=== PATIENT | female | born 1990 | race Caucasian/White ===

== ENCOUNTER 2017-01-24 07:45 | Emergency (ER) | payer MEDICAID ==
[2017-01-24] MEDS ORDERED: Sodium Chloride 0.9% 1000 ML 1,000 ML IV STA (07:53)
[2017-01-24] MEDS ORDERED: Reglan 10 MG/2 ML IV ONE (07:53)
[2017-01-24] MEDS ORDERED: BENADRYL 50 MG/ML IV ONE (07:53)
--- NOTE | 2017-01-24 07:56 | ERPHSYRPT ---
- History of Present Illness Time Seen by Provider: 01/24/17 07:47 Source: patient Physician History: CC: headache Hx: 26 y/o patient of PRERNA Shahid with hx of migraine headaches. She has had typical migraine headache gradually worsened since noon yesterday. Photophobia and nausea. No fever. Prior hysterectomy. She took two headache pills without relief. Pain is severe. Timing/Duration: yesterday Severity of Pain-Max: severe Severity of Pain-Current: severe Recent Head Trauma: frequent headaches, chronic headaches Allergies/Adverse Reactions: No Known Drug Allergies Allergy (Unverified 01/24/17 07:56) Home Medications: Amphet Asp/Amphet/D-Amphet [Adderall 30 mg Tablet] 30 mg PO BID 01/24/17 [ History] Propranolol HCl [Inderal Xl] 0 mg PO DAILY 01/24/17 [History] Hx Tetanus, Diphtheria Vaccination/Date Given: Yes Hx Influenza Vaccination/Date Given: No Hx Pneumococcal Vaccination/Date Given: No - Review of Systems Constitutional: No Fever, No Chills Eyes: Photophobia Ears, Nose, & Throat: No Symptoms Respiratory: No Cough Cardiac: No Chest Pain Abdominal/Gastrointestinal: Nausea, No Abdominal Pain, No Vomiting Genitourinary Symptoms: No Dysuria Skin: No Rash Neurological: Dizziness, Headache, No Focal Weakness, No Parasthesia All Other Systems: Reviewed and Negative - Past Medical History Pertinent Past Medical History: Yes Neurological History: Migraines Endocrine Medical History: Hypoglycemia Psycho-Social History: Depression Female Reproductive Disorders: Abnormal Uterine Bleeding, Endometriosis, Other Other Medical History: CERVICAL PRECANCER, OVARIAN CYSTS - Past Surgical History Past Surgical History: Yes Gastrointestinal: Cholecystectomy Female Surgical History: Section, Tubal Ligation Other Surgical History: D/C - Social History Smoking Status: Current every day smoker Exposure to second hand smoke: No Drug Use: none Patient Lives Alone: No - Female History Hx Now: No - Nursing Vital Signs Nursing Vital Signs: Initial Vital Signs Temperature 97.9 F Temperature Source Oral Pulse Rate 72 Respiratory Rate 18 Blood Pressure [Right Arm] 119/81 Pain Intensity 8 - Physical Exam General Appearance: alert Eye Exam: PERRL/EOMI Ears, Nose, Throat Exam: normal ENT inspection, moist mucous membranes Neck Exam: normal inspection, non-tender, supple, No meningismus Respiratory Exam: normal breath sounds, lungs clear Cardiovascular Exam: regular rate/rhythm Gastrointestinal/Abdominal Exam: soft, No tenderness, No distention Extremity Exam: normal inspection, normal range of motion Mental Status Exam: alert, oriented x 3, cooperative bobtailer Exam: normal hearing, normal speech, PERRL Coordination/Gait Exam: normal gait Motor/Sensory Exam: no motor deficit, no sensory deficit, no pronator drift Skin Exam: warm, dry, No rash - Course Nursing assessment & vital signs reviewed: Yes Ordered Tests: Active Orders 24 hr Category Date Time Status IV Insertion STAT Care 01/24/17 07:53 Active Medication Summary Generic Name Dose Route Start Last Admin Trade Name Freq PRN Reason Stop Dose Admin Sodium Chloride 1,000 mls @ 999 mls/hr 01/24/17 07:53 01/24/17 08:00 Sodium Chloride 0.9% 1000 Ml IV 01/24/17 08:53 999 mls/hr .Q1H1M STA Administration Discontinued Medications Generic Name Dose Route Start Last Admin Trade Name Freq PRN Reason Stop Dose Admin Diphenhydramine HCl 25 mg 01/24/17 07:53 01/24/17 08:01 Benadryl 50 Mg/Ml IV 01/24/17 07:54 25 mg STAT ONE Administration Diphenhydramine HCl Confirm 01/24/17 07:59 Benadryl 50 Mg/Ml Administered 01/24/17 08:00 Dose 50 mg .ROUTE .STK-MED ONE Sodium Chloride Confirm 01/24/17 07:59 Sodium Chloride 0.9% 1000 Ml Administered 01/24/17 08:00 Dose 1,000 mls @ ud .ROUTE .STK-MED ONE Metoclopramide HCl 10 mg 01/24/17 07:53 01/24/17 08:01 Reglan 10 Mg/2 Ml IV 01/24/17 07:54 10 mg STAT ONE Administration Metoclopramide HCl Confirm 01/24/17 07:59 Reglan 10 Mg/2 Ml Administered 01/24/17 08:00 Dose 10 mg .ROUTE .STK-MED ONE - Progress Progress Note: 01/24/17 08:48 She was medicated with IVF, benadryl, reglan, and toradol. Improved headache. Will release with instructions. Counseled pt/family regarding: diagnosis, need for follow-up - Departure Time of Disposition: 08:49 Departure Disposition: Home Clinical Impression: Migraine headache Qualifiers: Migraine type: without aura Status migrainosus presence: with status migrainosus Intractability: intractable Qualified Code(s): G43.011 - Migraine without aura, intractable, with status migrainosus Condition: Stable Critical Care Time: No Referrals: CINTIA SHAHID [NON-STAFF PHY W/O PRIVILEGES] - Instructions: Headache Additional Instructions: HEADACHE 1. After discharge from the emergency department, you should rest at home in a cool, dark, quiet place for 12-24 hours. 2. If any of the following signs or symptoms are noticed, you should be re- evaluated right away: A. Visual changes B. Stiff Neck C. Change in quality or location of pain D. Fever E. Recurrent vomiting 3. If pain medications were prescribed or given, they may cause drowsiness. No driving today. Follow up with PRERNA Shahid this week.
[2017-01-24] MEDS ORDERED: Reglan 10 MG/2 ML ONE (07:59)
[2017-01-24] MEDS ORDERED: BENADRYL 50 MG/ML ONE (07:59)
[2017-01-24] MEDS ORDERED: Sodium Chloride 0.9% 1000 ML 1,000 ML ONE (07:59)
[2017-01-24 08:51] VITALS: BP 110/75; PULSE 75; O2SAT 100
== END 2017-01-24 09:07 | disposition home or self-care (01) ==
LOC: ED 07:45
DX: G43.101 Migraine with aura, not intractable, with status migrainosus (principal)
CPT/HCPCS: 36000; 96360; 96374; 96375; 99284; J1200

== ENCOUNTER 2017-03-28 23:09 | Emergency (ER) | payer MEDICAID, OTHER ==
[2017-03-28] MEDS ORDERED: MOTRIN 600 MG PO ONE (23:18)
[2017-03-28] MEDS ORDERED: MOTRIN 600 MG ONE (23:23)
--- NOTE | 2017-03-28 23:23 | ERPHSYRPT ---
- History of Present Illness Time Seen by Provider: 03/28/17 23:18 Source: patient Physician History: CC: right ankle pain HX: 26 y/o patient with prior hsyterectomy. She has three injuries to right ankle today, twisting, smashed in door, and hurt while walking. No other injuries. Pain moderate. Worse with walking. Lower Extremities Pain: ankle: right Allergies/Adverse Reactions: No Known Drug Allergies Allergy (Unverified 03/28/17 23:35) Home Medications: Amphet Asp/Amphet/D-Amphet [Adderall 30 mg Tablet] 30 mg PO BID 01/24/17 [ History] Propranolol HCl [Inderal Xl] 0 mg PO DAILY 01/24/17 [History] Hx Tetanus, Diphtheria Vaccination/Date Given: Yes Hx Influenza Vaccination/Date Given: No Hx Pneumococcal Vaccination/Date Given: No - Review of Systems Constitutional: No Fever, No Chills Musculoskeletal: Joint Pain (right ankle), No Back Pain, No Neck Pain - Past Medical History Pertinent Past Medical History: Yes Neurological History: Migraines Endocrine Medical History: Hypoglycemia Psycho-Social History: Depression Female Reproductive Disorders: Abnormal Uterine Bleeding, Endometriosis, Other Other Medical History: CERVICAL PRECANCER, OVARIAN CYSTS - Past Surgical History Past Surgical History: Yes Gastrointestinal: Cholecystectomy Female Surgical History: Section, Tubal Ligation Other Surgical History: D/C - Social History Smoking Status: Current every day smoker How long have you smoked: 15 Exposure to second hand smoke: No Drug Use: none Patient Lives Alone: No - Female History Hx Now: No - Nursing Vital Signs Nursing Vital Signs: Initial Vital Signs Temperature 97.8 F 03/28/17 23:34 Pulse Rate 88 03/28/17 23:34 Respiratory Rate 16 03/28/17 23:34 Blood Pressure 123/86 03/28/17 23:34 O2 Sat by Pulse Oximetry 99 03/28/17 23:34 Pain Scale Pain Intensity 4 - Physical Exam General Appearance: alert Eyes, Ears, Nose, Throat Exam: moist mucous membranes Neck Exam: non-tender, supple Cardiovascular/Respiratory Exam: regular rate/rhythm Neuro/Tendon Exam: normal sensation, normal motor functions Mental Status Exam: alert, oriented x 3, cooperative Skin Exam: warm, dry Comments: right ankle tender. no erythema, no swelling, no warmth. No foot or knee tenderness. Pulse intact. - Course Nursing assessment & vital signs reviewed: Yes - Radiology Exams ankle X-ray Interpretation: Reviewed by me, No Fracture (spurring present) Ordered Tests: Active Orders 24 hr Category Date Time Status Vitaly Bandage [facility] STAT Care 03/28/17 23:18 Active Cold Application STAT Care 03/28/17 23:18 Active Splint STAT Care 03/28/17 23:18 Active ANKLE (3 VIEWS) Stat Exams 03/28/17 23:19 Taken Medication Summary Discontinued Medications Generic Name Dose Route Start Last Admin Trade Name Yayo PRN Reason Stop Dose Admin Ibuprofen 600 mg 03/28/17 23:18 03/28/17 23:24 Motrin 600 Mg PO 03/28/17 23:19 600 mg STAT ONE Administration Ibuprofen Confirm 03/28/17 23:23 Motrin 600 Mg Administered 03/28/17 23:24 Dose 600 mg .ROUTE .STK-MED ONE - Progress Progress Note: 03/28/17 23:39 Prelim xray neg pending radiologist review. Advised vitaly, air cast, ice, rest, elevate, motrin. Instr given. Counseled pt/family regarding: diagnosis, need for follow-up, rad results - Departure Time of Disposition: 23:40 Departure Disposition: Home Clinical Impression: Right ankle sprain Qualifiers: Encounter type: initial encounter Involved ligament of ankle: unspecified ligament Qualified Code(s): S93.401A - Sprain of unspecified ligament of right ankle, initial encounter Condition: Stable Critical Care Time: No Referrals: JEFFERY TREVIZO [Primary Care Provider] - Instructions: Ankle Sprain Additional Instructions: Vitaly wrap, air cast, ice , rest, elevate. Rx ibuprofen=motrin. SPRAINS/STRAINS/CONTUSIONS 1. Rest the affected area as much as possible for the next few days. 2. Apply ice to the affected area for 20-30 minutes at a time, several times a day. 3. If you receive an elastic wrap, wear it only while awake for comfort and support. Re-wrap the elastic wrap if it feels too tight or too loose. 4. If swelling is present, elevate the affected part above the level of the heart for at least 2 to 3 days. 5. Use splints, slings, or crutches as instructed. 6. Watch for severe swelling, coldness, numbness, and discoloration of the fingers and toes. See your family physician or return to the emergency department if any of these are noted. Prescriptions: Ibuprofen 600 mg PO Q6H PRN PRN #20 tablet PRN Reason: Pain
[2017-03-28 23:35] VITALS: BP 123/86; PULSE 88; O2SAT 99
--- NOTE | 2017-03-29 09:04 | XRAY ---
Indication: Pain following twisting injury. Comparison: July 05, 2006. 3 views of the right ankle again demonstrates normal bones, articulation, and soft tissues.
== END 2017-03-29 00:15 | disposition home or self-care (01) ==
LOC: ED 23:09
DX: S93.401A Sprain of unspecified ligament of right ankle, initial encounter (principal); X50.0XXA Overexertion from strenuous movement or load, initial encounter; W22.8XXA Striking against or struck by other objects, initial encounter
CPT/HCPCS: 73610; 99283; A9270-GY

== ENCOUNTER 2017-04-06 07:23 | Emergency (ER) | payer OTHER ==
[2017-04-06] MEDS ORDERED: BENADRYL 50 MG/ML IV ONE (07:35)
[2017-04-06] MEDS ORDERED: Sodium Chloride 0.9% 1000 ML 1,000 ML IV STA (07:35)
[2017-04-06] MEDS ORDERED: Reglan 10 MG/2 ML IV ONE (07:35)
[2017-04-06] MEDS ORDERED: Reglan 10 MG/2 ML ONE (07:41)
[2017-04-06] MEDS ORDERED: BENADRYL 50 MG/ML ONE (07:41)
[2017-04-06] MEDS ORDERED: Sodium Chloride 0.9% 1000 ML 1,000 ML ONE (07:41)
--- NOTE | 2017-04-06 07:41 | ERPHSYRPT ---
- History of Present Illness Time Seen by Provider: 04/06/17 07:33 Source: patient Exam Limitations: no limitations Patient Subjective Stated Complaint: co migraine since last night, nausea, unrelieved by sumatriptan Triage Nursing Assessment: pt walked in , resp easy, skin w/d,alert, wearing sunglasses and holding head, Physician History: 26-year-old white female with history of migraines arrives with complaint of frontal headache nausea and photophobia symptoms since last night no fevers no focal sensory deficits. Past medical history includes migraines, hypoglycemia, abnormal uterine bleeding , endometriosis, cervical pre-cancer Past surgical history includes cholecystectomy, tubal ligation, D&C Timing/Duration: yesterday Quality: aching Head Pain Location: frontal Severity of Pain-Max: moderate Severity of Pain-Current: moderate Recent Head Trauma: occasional headaches Associated Symptoms: nausea/vomiting, other (photophobia), No confusion, No dizziness, No fatigue, No facial pain, No fever/chills, No flushing, No light- headedness, No loss of consciousness, No nasal congestion, No nasal drainage, No neck pain, No numbness in legs/feet, No rash, No sweating, No scotoma, No seizures, No sinus infection, No sensitive to light, No speech problems, No stiff neck, No trouble walking, No vision changes, No visual disturbance, No weakness Previous symptoms: same symptoms as today (history of migraines with same symptoms as today) Allergies/Adverse Reactions: No Known Drug Allergies Allergy (Verified 04/06/17 07:30) Home Medications: Amphet Asp/Amphet/D-Amphet [Adderall 30 mg Tablet] 30 mg PO BID 01/24/17 [ History] Propranolol HCl [Inderal Xl] 0 mg PO DAILY 01/24/17 [History] Hx Tetanus, Diphtheria Vaccination/Date Given: Yes Hx Influenza Vaccination/Date Given: No Hx Pneumococcal Vaccination/Date Given: No Immunizations Up to Date: Yes - Review of Systems Constitutional: No Fever, No Chills Eyes: Photophobia, No Discharge, No Eye Pain, No Eye Redness, No Itchy, No Tearing, No Vision Changes, No Double Vision, No Foreign Body Sensation Ears, Nose, & Throat: No Symptoms Respiratory: No Cough, No Dyspnea Cardiac: No Chest Pain, No Edema, No Syncope Abdominal/Gastrointestinal: Nausea, No Abdominal Pain, No Vomiting, No Diarrhea , No Constipation, No Hematemesis, No Hematochezia, No Melena, No Dysphagia, No Appetite Changes Genitourinary Symptoms: No Dysuria Musculoskeletal: No Back Pain, No Neck Pain Skin: No Rash Neurological: Headache, No Dizziness, No Focal Weakness, No Gait Changes, No Irritability, No Lethargy, No Paralysis, No Parasthesia, No Seizure, No Sensory Changes, No Speech Changes, No Tics, No Tremors Psychological: No Symptoms Endocrine: No Symptoms All Other Systems: Reviewed and Negative - Past Medical History Pertinent Past Medical History: Yes Neurological History: Migraines Endocrine Medical History: Hypoglycemia Psycho-Social History: Anxiety, Depression Female Reproductive Disorders: Abnormal Uterine Bleeding, Endometriosis, Other Other Medical History: CERVICAL PRECANCER, OVARIAN CYSTS - Past Surgical History Past Surgical History: Yes Gastrointestinal: Cholecystectomy Female Surgical History: Section, Tubal Ligation Other Surgical History: D/C - Social History Smoking Status: Current every day smoker How long have you smoked: 15 Exposure to second hand smoke: Yes Drug Use: none Patient Lives Alone: No - Female History Hx Last Menstrual Period: hyster Hx Now: No - Nursing Vital Signs Nursing Vital Signs: Initial Vital Signs Temperature 98.5 F 04/06/17 07:25 Pulse Rate 67 04/06/17 07:25 Respiratory Rate 18 04/06/17 07:25 Blood Pressure 123/86 04/06/17 07:25 O2 Sat by Pulse Oximetry 100 04/06/17 07:25 Pain Scale Pain Intensity 5 - Physical Exam General Appearance: moderate distress, alert, No anxiety, No lethargy, No cachetic, No obese, No thin Eye Exam: PERRL/EOMI, other (fundi are unremarkable) Ears, Nose, Throat Exam: normal ENT inspection, moist mucous membranes Neck Exam: normal inspection, supple, full range of motion, No meningismus Respiratory Exam: normal breath sounds, lungs clear Cardiovascular Exam: regular rate/rhythm, normal heart sounds Gastrointestinal/Abdominal Exam: soft, No tenderness, No distention Back Exam: normal inspection, normal range of motion Extremity Exam: normal inspection, normal range of motion Mental Status Exam: alert, oriented x 3, cooperative, No agitated, No uncooperative, No depressed affect, No disoriented to person, No disoriented to place, No disoriented to time, No intoxicated appearance, No lethargy, No unresponsive obgyn hospitalist physician Exam: normal speech, PERRL, No facial droop, No facial paresthesias, No facial weakness, No gaze palsy, No hearing deficit (R), No hearing deficit (L) Coordination/Gait Exam: normal finger to nose, normal gait, normal cerebellar function, No ABN nose to finger (R), No ABN nose to finger (L) Motor/Sensory Exam: no motor deficit, no sensory deficit, No weak motor strength RUE, No weak motor strength LUE, No weak motor strength RLE, No weak motor strength LLE Skin Exam: normal color, warm, dry, No rash SpO2 Interpretation: normal (100%) SpO2: 100 Oxygen Delivery: Room Air - Course Nursing assessment & vital signs reviewed: Yes Ordered Tests: Active Orders 24 hr Category Date Time Status IV Insertion STAT Care 04/06/17 07:35 Active Medication Summary Discontinued Medications Generic Name Dose Route Start Last Admin Trade Name Freq PRN Reason Stop Dose Admin Diphenhydramine HCl 25 mg 04/06/17 07:35 04/06/17 07:42 Benadryl 50 Mg/Ml IV 04/06/17 07:36 25 mg STAT ONE Administration Diphenhydramine HCl Confirm 04/06/17 07:41 Benadryl 50 Mg/Ml Administered 04/06/17 07:42 Dose 50 mg .ROUTE .STK-MED ONE Sodium Chloride 1,000 mls @ 999 mls/hr 04/06/17 07:35 04/06/17 07:43 Sodium Chloride 0.9% 1000 Ml IV 04/06/17 08:35 999 mls/hr .Q1H1M STA Administration Sodium Chloride Confirm 04/06/17 07:41 Sodium Chloride 0.9% 1000 Ml Administered 04/06/17 07:42 Dose 1,000 mls @ ud .ROUTE .STK-MED ONE Ketorolac Tromethamine 30 mg 04/06/17 08:17 04/06/17 08:22 Toradol 30 Mg Injection IV 04/06/17 08:18 30 mg STAT ONE Administration Ketorolac Tromethamine Confirm 04/06/17 08:21 Toradol 30 Mg Injection Administered 04/06/17 08:22 Dose 30 mg .ROUTE .STK-MED ONE Metoclopramide HCl 10 mg 04/06/17 07:35 04/06/17 07:42 Reglan 10 Mg/2 Ml IV 04/06/17 07:36 10 mg STAT ONE Administration Metoclopramide HCl Confirm 04/06/17 07:41 Reglan 10 Mg/2 Ml Administered 04/06/17 07:42 Dose 10 mg .ROUTE .STK-MED ONE - Progress Progress: improved Air Movement: fair Progress Note: 04/06/17 08:51 Patient feeling better after receiving IV Reglan, Benadryl, Toradol, normal saline. States she is markedly improved. Will discharge. - Departure Time of Disposition: 08:51 Departure Disposition: Home Clinical Impression: Migraine headache Qualifiers: Migraine type: unspecified Status migrainosus presence: without status migrainosus Intractability: not intractable Qualified Code(s): G43.909 - Migraine, unspecified, not intractable, without status migrainosus Condition: Fair Critical Care Time: No Referrals: JEFFERY TREVIZO [Primary Care Provider] - Instructions: Headache Additional Instructions: Return home rest in dark quiet room. Follow-up with your family doctor if symptoms are recurrent. Return for acute distress or for severe symptoms.
[2017-04-06] MEDS ORDERED: TORAdol 30 mg Injection IV ONE (08:17)
[2017-04-06] MEDS ORDERED: TORAdol 30 mg Injection ONE (08:21)
[2017-04-06 08:52] VITALS: O2SAT 100
[2017-04-06 08:55] VITALS: BP 122/68; PULSE 68
== END 2017-04-06 09:04 | disposition home or self-care (01) ==
LOC: ED 07:23
DX: G43.909 Migraine, unspecified, not intractable, without status migrainosus (principal)
CPT/HCPCS: 36000; 96360; 96365; 96374; 96375; 99284; J1200; J1885

== ENCOUNTER 2017-04-08 17:57 | Emergency (ER) | payer OTHER ==
[2017-04-08] MEDS ORDERED: MOTRIN 600 MG PO ONE (18:11)
[2017-04-08] MEDS ORDERED: XYLOCAINE 1% HCL 20 ML MDV IJ ONE (18:11)
[2017-04-08] MEDS ORDERED: BACIGUENT PACKET TP ONE (18:11)
[2017-04-08] MEDS ORDERED: BACIGUENT PACKET ONE (18:15)
[2017-04-08] MEDS ORDERED: MOTRIN 600 MG ONE (18:15)
[2017-04-08] MEDS ORDERED: XYLOCAINE 1% HCL 20 ML MDV ONE (18:15)
--- NOTE | 2017-04-08 18:16 | ERPHSYRPT ---
- History of Present Illness Time Seen by Provider: 04/08/17 18:01 Source: patient Patient Subjective Stated Complaint: PT REPORTS TRIPPING ET FALLING INTO HER SCREEN DOOR-REPORTS SHE ROLLED HER LEFT ANKLE-HIT RIGHT ARM ON DOOR-REPORTS RECENT INJURY TO RIGHT ANKLE Triage Nursing Assessment: PT PINK WARM ET [id number] NONLABORED- SUPERFICIAL ABRASIONS NOTED TO RIGHT ARM WITH BLEEDING STOPPED SAFETY ASSISTANT-NO OBVIOUS DEFORMITY-PEDAL PULSE REGULAR ET STRONG Physician History: CC: fall Hx: 26 y/o patient with hx of hysterectomy. She h states tripped on her flip flop on a step. Fell on her left arm with a cut. Twisted left ankle. No other injuries. Pain moderately severe. Some tingling in hand. No neck or back pain. She had recent right ankle injury. Hx of headaches. Timing/Duration: today Severity: moderate Allergies/Adverse Reactions: No Known Drug Allergies Allergy (Verified 04/08/17 18:06) Home Medications: Propranolol HCl [Inderal Xl] 120 mg PO DAILY 01/24/17 [History] Albuterol 2.5 mg/3 ml Neb [Proventil 2.5 mg/3 ml Neb] 2.5 mg IH UD [History] Amphet Asp/Amphet/D-Amphet [Adderall 30 mg Tablet] 30 mg PO BID 04/08/17 [ History] Bupropion HCl 150 mg Sr [Wellbutrin SR 150 MG] 150 mg PO BID 04/08/17 [ History] Clonazepam 0.5 mg [Klonopin 0.5 MG] 0.5 mg PO BID 04/08/17 [History] Sumatriptan Succinate [Imitrex 50 mg] 50 mg PO DAILY 04/08/17 [History] Hx Tetanus, Diphtheria Vaccination/Date Given: Yes Hx Influenza Vaccination/Date Given: No Hx Pneumococcal Vaccination/Date Given: No Immunizations Up to Date: Yes - Review of Systems Constitutional: No Symptoms Eyes: No Vision Changes Respiratory: No Dyspnea Cardiac: No Chest Pain, No Syncope Abdominal/Gastrointestinal: No Abdominal Pain, No Nausea, No Vomiting Musculoskeletal: Fall, Injury, No Back Pain, No Neck Pain Neurological: No Focal Weakness, No Headache All Other Systems: Reviewed and Negative - Past Medical History Pertinent Past Medical History: Yes Neurological History: Migraines Endocrine Medical History: Hypoglycemia Psycho-Social History: Anxiety, Depression Female Reproductive Disorders: Abnormal Uterine Bleeding, Endometriosis, Other Other Medical History: CERVICAL PRECANCER, OVARIAN CYSTS - Past Surgical History Past Surgical History: Yes Gastrointestinal: Cholecystectomy Female Surgical History: Section, Tubal Ligation Other Surgical History: D/C - Social History Smoking Status: Current every day smoker How long have you smoked: 15 Exposure to second hand smoke: Yes Drug Use: none Patient Lives Alone: No - Female History Hx Last Menstrual Period: HYSTERECTOMY Hx Now: No - Nursing Vital Signs Nursing Vital Signs: Initial Vital Signs Temperature 98.1 F 04/08/17 18:02 Pulse Rate 97 H 04/08/17 18:02 Respiratory Rate 18 04/08/17 18:02 Blood Pressure 120/64 04/08/17 18:02 O2 Sat by Pulse Oximetry 97 04/08/17 18:02 Pain Scale Pain Intensity 9 - Physical Exam General Appearance: alert Eye Exam: PERRL/EOMI Ears, Nose, Throat Exam: normal ENT inspection, moist mucous membranes Neck Exam: non-tender, supple, No midline tenderness Respiratory Exam: No respiratory distress Cardiovascular Exam: regular rate/rhythm Back Exam: No vertebral tenderness Extremity Exam: other (left ankle tender, without swelling. Left forearm has some abrasion and a 2 cm laceration. No apparent FB. ROM intact. ) Neurologic Exam: alert, oriented x 3, cooperative Skin Exam: warm, dry SpO2: 97 Oxygen Delivery: Room Air Procedures - Laceration/Wound Repair left forearm Wound Location: Left Wound Length (cm): 2 Wound's Depth, Shape: flap Wound Explored: no foreign body noted Hibiclens Prep: Yes Anesthesia: local, 1% Lidocaine Wound Repaired With: sutures Suture Size/Type: 4-0, nylon Number of Sutures: 3 Sterile Dressing Applied?: Yes - Course Nursing assessment & vital signs reviewed: Yes - Radiology Exams left forearm/ankle X-ray Interpretation: Reviewed by me, No Fracture (No FB) Ordered Tests: Active Orders 24 hr Category Date Time Status Vitaly Bandage Application -[facility] STAT Care 04/08/17 18:11 Active Cold Application STAT Care 04/08/17 18:11 Active Prepare for Sutures STAT Care 04/08/17 18:11 Active Sutures STAT Care 04/08/17 18:12 Active Wound Care STAT Care 04/08/17 18:11 Active ANKLE (3 VIEWS) Stat Exams 04/08/17 18:10 Taken FOREARM Stat Exams 04/08/17 18:10 Taken Medication Summary Discontinued Medications Generic Name Dose Route Start Last Admin Trade Name Yayo PRN Reason Stop Dose Admin Bacitracin 0.9 gm 04/08/17 18:11 04/08/17 18:18 Baciguent Packet TP 04/08/17 18:12 0.9 gm STAT ONE Administration Bacitracin Confirm 04/08/17 18:15 Baciguent Packet Administered 04/08/17 18:16 Dose 1 gm .ROUTE .STK-MED ONE Ibuprofen 600 mg 04/08/17 18:11 04/08/17 18:18 Motrin 600 Mg PO 04/08/17 18:12 600 mg STAT ONE Administration Ibuprofen Confirm 04/08/17 18:15 Motrin 600 Mg Administered 04/08/17 18:16 Dose 600 mg .ROUTE .STK-MED ONE Lidocaine HCl 5 ml 04/08/17 18:11 04/08/17 18:18 Xylocaine 1% Hcl 20 Ml Mdv IJ 04/08/17 18:12 5 ml STAT ONE Administration Lidocaine HCl Confirm 04/08/17 18:15 Xylocaine 1% Hcl 20 Ml Mdv Administered 04/08/17 18:16 Dose 5 ml .ROUTE .STK-MED ONE - Progress Progress Note: 04/08/17 18:41 Wound and sprain instr given. Counseled pt/family regarding: diagnosis, need for follow-up, rad results - Departure Time of Disposition: 18:41 Departure Disposition: Home Clinical Impression: 2cm left forearm laceration, Left ankle sprain Condition: Stable Critical Care Time: No Referrals: JEFFERY TREVIZO [Primary Care Provider] - Instructions: Prevent Falls, Care for a Laceration After Repair, Ankle Sprain Additional Instructions: LACERATION CARE 1. Do not use peroxide, merthiolate, alcohol, or betadine. 2. Keep wound clean and dry. 3. Change dressing if it becomes wet or soiled. 4. If you must work, wear protective covering. 5. You may return to the emergency department or see your family physician for suture removal. 6. See your family physician or return to the emergency department for any of the following signs or symptoms: A. Redness B. Swelling C. Discolored drainage D. Red streaks E. Elevated temperature F. Other signs of infection Suture removal in 10 days. Rx ibuprofen. Left ankle vitaly wrap. SPRAINS/STRAINS/CONTUSIONS 1. Rest the affected area as much as possible for the next few days. 2. Apply ice to the affected area for 20-30 minutes at a time, several times a day. 3. If you receive an elastic wrap, wear it only while awake for comfort and support. Re-wrap the elastic wrap if it feels too tight or too loose. 4. If swelling is present, elevate the affected part above the level of the heart for at least 2 to 3 days. 5. Use splints, slings, or crutches as instructed. 6. Watch for severe swelling, coldness, numbness, and discoloration of the fingers and toes. See your family physician or return to the emergency department if any of these are noted. Prescriptions: Ibuprofen 600 mg PO Q6H PRN PRN #24 tablet PRN Reason: Pain
[2017-04-08 18:47] VITALS: BP 115/66; PULSE 90; O2SAT 99
--- NOTE | 2017-04-08 22:42 | XRAY ---
Indication: Pain following fall. Comparison: January 23, 2007. 3 views of the left ankle again demonstrate normal bones, articulations, and soft tissues.
--- NOTE | 2017-04-08 22:44 | XRAY ---
Indication: Pain following fall. Comparison: None 2 views of the left forearm demonstrates normal bones, articulation, and soft tissues.
== END 2017-04-08 18:49 | disposition home or self-care (01) ==
LOC: ED 17:57
PROC: 0HQEXZZ Repair Left Lower Arm Skin, External Approach (ICD-10-PCS; principal; 2017-04-08)
DX: S51.812A Laceration without foreign body of left forearm, initial encounter (principal); S93.402A Sprain of unspecified ligament of left ankle, initial encounter; W01.118A Fall on same level from slipping, tripping and stumbling with subsequent striking against other sharp object, initial encounter
CPT/HCPCS: 12001; 73090; 73610; 96372; 99284; A9270-GY

== ENCOUNTER 2017-06-30 04:18 | Emergency (ER) | payer OTHER ==
[2017-06-30] MEDS ORDERED: Sodium Chloride 0.9% 1000 ML 1,000 ML IV STA (04:42)
[2017-06-30] MEDS ORDERED: BENADRYL 50 MG/ML IV ONE (04:42)
[2017-06-30] MEDS ORDERED: Reglan 10 MG/2 ML IV ONE (04:43)
[2017-06-30] MEDS ORDERED: TORAdol 30 mg Injection IV ONE (04:43)
[2017-06-30] MEDS ORDERED: BENADRYL 50 MG/ML ONE (04:46)
[2017-06-30] MEDS ORDERED: Reglan 10 MG/2 ML ONE (04:46)
[2017-06-30] MEDS ORDERED: TORAdol 30 mg Injection ONE (04:46)
[2017-06-30] MEDS ORDERED: Sodium Chloride 0.9% 1000 ML 1,000 ML ONE (04:46)
--- NOTE | 2017-06-30 04:47 | ERPHSYRPT ---
- History of Present Illness Time Seen by Provider: 06/30/17 04:40 Source: patient Exam Limitations: no limitations Patient Subjective Stated Complaint: PT states "I picked my son up at a dance and I think the lights triggered a migraine. My head really started to hurt at 0130 this morning and I took 2 of my migraine pills and an aleive but nothing worked." Triage Nursing Assessment: Pt alert and oriented X 3, skin pwd. Pt ambulates with an upright steady gait, able to speak in full sentences. Pt squinting and holding her head. Physician History: 26 y/o female with history of migraine headache comes to the ER with complaints of left sided headache that started at 1 am this morning. Pt describes the pain as throbbing, 9/10, constant, and not relieved by tylenol or advil. Pt admits to multiple episodes of nausea and vomiting. There is also photophobia. Timing/Duration: today Quality: throbbing Head Pain Location: frontal Severity of Pain-Max: severe Severity of Pain-Current: severe Recent Head Trauma: frequent headaches Associated Symptoms: nausea/vomiting, sensitive to light Previous symptoms: same symptoms as today Allergies/Adverse Reactions: No Known Drug Allergies Allergy (Verified 04/08/17 18:06) Home Medications: Albuterol 2.5 mg/3 ml Neb [Proventil 2.5 mg/3 ml Neb] 2.5 mg IH UD [History] Amphet Asp/Amphet/D-Amphet [Adderall 30 mg Tablet] 30 mg PO BID 04/08/17 [ History] Bupropion HCl 150 mg Sr [Wellbutrin SR 150 MG] 150 mg PO BID 04/08/17 [ History] Clonazepam 0.5 mg [Klonopin 0.5 MG] 0.5 mg PO BID 04/08/17 [History] Sumatriptan Succinate [Imitrex 50 mg] 50 mg PO DAILY 04/08/17 [History] Hx Tetanus, Diphtheria Vaccination/Date Given: Yes Hx Influenza Vaccination/Date Given: No Hx Pneumococcal Vaccination/Date Given: No Immunizations Up to Date: Yes - Review of Systems Constitutional: No Fever, No Chills Eyes: Photophobia Ears, Nose, & Throat: No Symptoms Respiratory: No Cough, No Dyspnea Cardiac: No Chest Pain, No Edema, No Syncope Abdominal/Gastrointestinal: Nausea, Vomiting, No Abdominal Pain, No Diarrhea Genitourinary Symptoms: No Dysuria Musculoskeletal: No Back Pain, No Neck Pain Skin: No Rash Neurological: Headache, No Dizziness, No Focal Weakness, No Sensory Changes Psychological: No Symptoms Endocrine: No Symptoms All Other Systems: Reviewed and Negative - Past Medical History Pertinent Past Medical History: Yes Neurological History: Migraines Endocrine Medical History: Hypoglycemia Psycho-Social History: Anxiety, Depression Female Reproductive Disorders: Abnormal Uterine Bleeding, Endometriosis, Other Other Medical History: CERVICAL PRECANCER, OVARIAN CYSTS - Past Surgical History Past Surgical History: Yes Gastrointestinal: Cholecystectomy Female Surgical History: Section, Tubal Ligation Other Surgical History: D/C - Social History Smoking Status: Current every day smoker How long have you smoked: 16 Exposure to second hand smoke: Yes Drug Use: none Patient Lives Alone: No - Female History Hx Last Menstrual Period: histerectomy Hx Now: No - Nursing Vital Signs Nursing Vital Signs: Initial Vital Signs Temperature 97.7 F 06/30/17 04:20 Pulse Rate 76 06/30/17 04:20 Respiratory Rate 16 06/30/17 04:20 Blood Pressure 169/68 06/30/17 04:20 O2 Sat by Pulse Oximetry 97 06/30/17 04:20 Pain Scale Pain Intensity 5 - Physical Exam General Appearance: moderate distress Eye Exam: PERRL/EOMI, photophobia Ears, Nose, Throat Exam: normal ENT inspection, moist mucous membranes Neck Exam: normal inspection, non-tender, supple, full range of motion, No meningismus Respiratory Exam: normal breath sounds, lungs clear Cardiovascular Exam: regular rate/rhythm, normal heart sounds Gastrointestinal/Abdominal Exam: soft, No tenderness, No distention Back Exam: normal inspection, normal range of motion Extremity Exam: normal inspection, normal range of motion Mental Status Exam: alert, oriented x 3, cooperative textile knitter Exam: normal speech, PERRL, No facial droop Coordination/Gait Exam: normal cerebellar function Motor/Sensory Exam: no motor deficit, no sensory deficit Skin Exam: normal color, warm, dry, No rash SpO2 Interpretation: normal SpO2: 97 Oxygen Delivery: Room Air - Course Nursing assessment & vital signs reviewed: Yes Ordered Tests: Medication Summary Generic Name Dose Route Start Last Admin Trade Name Freq PRN Reason Stop Dose Admin Sodium Chloride 1,000 mls @ 999 mls/hr 06/30/17 04:42 06/30/17 04:47 Sodium Chloride 0.9% 1000 Ml IV 06/30/17 05:42 999 mls/hr .Q1H1M STA Administration Discontinued Medications Generic Name Dose Route Start Last Admin Trade Name Tonyq PRN Reason Stop Dose Admin Diphenhydramine HCl 25 mg 06/30/17 04:42 06/30/17 04:48 Benadryl 50 Mg/Ml IV 06/30/17 04:43 25 mg STAT ONE Administration Diphenhydramine HCl Confirm 06/30/17 04:46 Benadryl 50 Mg/Ml Administered 06/30/17 04:47 Dose 50 mg .ROUTE .STK-MED ONE Sodium Chloride Confirm 06/30/17 04:46 Sodium Chloride 0.9% 1000 Ml Administered 06/30/17 04:47 Dose 1,000 mls @ ud .ROUTE .STK-MED ONE Ketorolac Tromethamine 30 mg 06/30/17 04:43 06/30/17 04:48 Toradol 30 Mg Injection IV 06/30/17 04:44 30 mg STAT ONE Administration Ketorolac Tromethamine Confirm 06/30/17 04:46 Toradol 30 Mg Injection Administered 06/30/17 04:47 Dose 30 mg .ROUTE .STK-MED ONE Metoclopramide HCl 10 mg 06/30/17 04:43 06/30/17 04:48 Reglan 10 Mg/2 Ml IV 06/30/17 04:44 10 mg STAT ONE Administration Metoclopramide HCl Confirm 06/30/17 04:46 Reglan 10 Mg/2 Ml Administered 06/30/17 04:47 Dose 10 mg .ROUTE .STK-MED ONE - Progress Progress: improved Progress Note: 06/30/17 05:31 Pt feels better after receiving benadryl, toradol and reglan. Pt will F/U with PCP as needed for migraine headaches. - Departure Time of Disposition: 05:32 Departure Disposition: Home Clinical Impression: Migraine Qualifiers: Migraine type: unspecified Status migrainosus presence: without status migrainosus Intractability: not intractable Qualified Code(s): G43.909 - Migraine, unspecified, not intractable, without status migrainosus Condition: Stable Critical Care Time: No Referrals: JEFFERY TREVIZO [Primary Care Provider] - Instructions: Migraine Additional Instructions: Follow up with your primary care doctor if you continue to have headache.
[2017-06-30 05:23] VITALS: BP 113/69; PULSE 82
[2017-06-30 05:33] VITALS: O2SAT 97
== END 2017-06-30 05:45 | disposition home or self-care (01) ==
LOC: ED 04:18
DX: G43.909 Migraine, unspecified, not intractable, without status migrainosus (principal)
CPT/HCPCS: 36000; 96360; 96374; 96375; 99284; J1200; J1885

== ENCOUNTER 2018-02-14 18:59 | Emergency (ER) | payer OTHER ==
[2018-02-14 19:34] VITALS: BP 142/66; PULSE 89; O2SAT 99
[2018-02-14] MEDS ORDERED: Augmentin 875-125 Tablet PO ONE (19:39)
[2018-02-14] MEDS ORDERED: TORAdol 30 mg Injection IM ONE (19:40)
[2018-02-14] MEDS ORDERED: NORCO 5/325 MG PO ONE ×2 (19:40)
[2018-02-14] MEDS ORDERED: Augmentin 875-125 Tablet ONE (19:41)
[2018-02-14] MEDS ORDERED: NORCO 5/325 MG ONE ×2 (19:42→19:47)
--- NOTE | 2018-02-14 19:46 | ERPHSYRPT ---
- History of Present Illness Time Seen by Provider: 02/14/18 19:35 Source: patient Exam Limitations: no limitations Patient Subjective Stated Complaint: Pt arrives to ER with c/o dental pain intermittently for past 3 months and became worse today. States is broken tooth. Saw dentist 3 months ago to have rotten teeth pulled but now has more. Pt states has had problems with insurance but states should be able to get into a dentist but has not yet called. Pt rocking back and forth in bed crying out loudly. Triage Nursing Assessment: see above Physician History: 27 y/o female comes to the ER with complaints of left lower tooth pain that started this evening. Pt has been dealing with this pain for the past 3 months but this evening the pain has gotten worse. Pt describes the pain as sharp, constant, 10/10, and not relieved by OTC meds. Pt was seen by a dentist 3 months ago and had 2 front teeth pulled. Timing/Duration: abrupt onset Severity: severe ENT Location: dental Prearrival Treatment: over the counter meds Modifying Factors: Improves With: nothing Allergies/Adverse Reactions: No Known Drug Allergies Allergy (Verified 02/14/18 19:34) Home Medications: Albuterol 2.5 mg/3 ml Neb [Proventil 2.5 mg/3 ml Neb] 2.5 mg IH UD [History] Amphet Asp/Amphet/D-Amphet [Adderall 30 mg Tablet] 30 mg PO BID 04/08/17 [ History] Bupropion HCl 150 mg Sr [Wellbutrin SR 150 MG] 150 mg PO BID 04/08/17 [ History] Clonazepam 0.5 mg [Klonopin 0.5 MG] 0.5 mg PO BID 04/08/17 [History] SUMAtriptan succinate [Imitrex 50 mg] 50 mg PO DAILY 04/08/17 [History] Hx Tetanus, Diphtheria Vaccination/Date Given: Yes Hx Influenza Vaccination/Date Given: No Hx Pneumococcal Vaccination/Date Given: No - Review of Systems Constitutional: No Fever, No Chills Eyes: No Symptoms Ears, Nose, & Throat: No Symptoms, Mouth Pain Respiratory: No Cough, No Dyspnea Cardiac: No Chest Pain, No Edema, No Syncope Abdominal/Gastrointestinal: No Abdominal Pain, No Nausea, No Vomiting, No Diarrhea Genitourinary Symptoms: No Dysuria Musculoskeletal: No Back Pain, No Neck Pain Skin: No Rash Neurological: No Dizziness, No Focal Weakness, No Sensory Changes Psychological: No Symptoms Endocrine: No Symptoms All Other Systems: Reviewed and Negative - Past Medical History Pertinent Past Medical History: Yes Neurological History: Migraines Endocrine Medical History: Hypoglycemia Psycho-Social History: Anxiety, Depression Female Reproductive Disorders: Abnormal Uterine Bleeding, Endometriosis, Other Other Medical History: CERVICAL PRECANCER, OVARIAN CYSTS - Past Surgical History Past Surgical History: Yes Gastrointestinal: Cholecystectomy Female Surgical History: Section, Tubal Ligation Other Surgical History: D/C - Social History Smoking Status: Current every day smoker How long have you smoked: 16 Exposure to second hand smoke: Yes Drug Use: none Patient Lives Alone: No - Female History Hx Now: No - Nursing Vital Signs Nursing Vital Signs: Initial Vital Signs Temperature 98.1 F 02/14/18 19:28 Pulse Rate 89 02/14/18 19:28 Respiratory Rate 18 02/14/18 19:28 Blood Pressure 142/66 02/14/18 19:28 O2 Sat by Pulse Oximetry 99 02/14/18 19:28 Pain Scale Pain Intensity 10 - Physical Exam General Appearance: severe distress, alert Eye Exam: bilateral eye: PERRL, EOMI Nasal Exam: normal inspection Throat Exam: dental tenderness, moist mucus membranes, No tonsillar exudate Neck Exam: supple Cardiovascular/Respiratory Exam: normal breath sounds, regular rate/rhythm Abdominal Exam: non-tender, soft Neurologic Exam: alert, oriented x 3, sensation nml, No motor deficits Skin Exam: normal color, warm, dry SpO2: 99 Oxygen Delivery: Room Air - Course Nursing assessment & vital signs reviewed: Yes Ordered Tests: Medication Summary Generic Name Dose Route Start Last Admin Trade Name Freq PRN Reason Stop Dose Admin Hydrocodone Bitart/Acetaminophen 1 tab 02/14/18 19:40 [place] 5/325 Mg PO 02/14/18 19:41 STAT ONE Ketorolac Tromethamine 60 mg 02/14/18 19:40 Toradol 30 Mg Injection IM 02/14/18 19:41 STAT ONE Discontinued Medications Generic Name Dose Route Start Last Admin Trade Name Freq PRN Reason Stop Dose Admin Amoxicillin/Clavulanate Potassium 875 mg 02/14/18 19:39 Augmentin 875-125 Tablet PO 02/14/18 19:40 STAT ONE - Progress Progress: unchanged Progress Note: 02/14/18 19:44 Pt will be d/c home on toradol, norco for severe pain and augmentin. Pt has agreed to F/U with dentist. - Departure Time of Disposition: 19:44 Departure Disposition: Home Clinical Impression: Dental infection Condition: Stable Critical Care Time: No Referrals: JEFFERY TREVIZO [Primary Care Provider] - Instructions: Dental Pain (DC) Additional Instructions: Follow up with your dentist in the next 2-3 days. Prescriptions: Amoxicillin/Potassium Clav [Augmentin 875-125 Tablet] 875 mg PO BID #19 tablet Hydrocodone Bit/Acetaminophen [[place] 5-325 Tablet] 1 each PO QID PRN #12 tablet MDD 4 PRN Reason: Severe Pain Ketorolac Tromethamine [Toradol] 10 mg PO QID PRN #20 tablet PRN Reason: Pain
[2018-02-14] MEDS ORDERED: TORAdol 30 mg Injection ONE (19:51)
== END 2018-02-14 20:12 | disposition home or self-care (01) ==
LOC: ED 18:59
DX: K04.7 Periapical abscess without sinus (principal); Z79.899 Other long term (current) drug therapy
CPT/HCPCS: 96372; 99284; J1885; A9270-GY

== ENCOUNTER 2018-04-06 22:30 | Emergency (ER) | payer OTHER ==
[2018-04-06 22:50] VITALS: BP 104/74; PULSE 84; O2SAT 100
[2018-04-06] MEDS ORDERED: Rocephin 1000 MG INJ IM ONE (22:57)
--- NOTE | 2018-04-06 22:57 | ERPHSYRPT ---
- History of Present Illness Time Seen by Provider: 04/06/18 22:53 Source: patient Exam Limitations: no limitations Patient Subjective Stated Complaint: pt co dental pain on top and bottom back teeth on left side; has been ongoing for approx 1 week; has dental appt later this month. Triage Nursing Assessment: pt a&o x3; skin p, w, & d; ambulated to room per self ; no other distress noted. Physician History: pt c/o dental pain on top and bottom back teeth on left side; has been ongoing for approx 1 week; has dental appt later this month. Timing/Duration: week(s) Severity: moderate Associated Symptoms: denies symptoms Allergies/Adverse Reactions: No Known Drug Allergies Allergy (Verified 04/06/18 22:50) Home Medications: Albuterol 2.5 mg/3 ml Neb [Proventil 2.5 mg/3 ml Neb] 2.5 mg IH UD [History] Amphet Asp/Amphet/D-Amphet [Adderall 30 mg Tablet] 30 mg PO BID 04/08/17 [ History] Bupropion HCl 150 mg Sr [Wellbutrin SR 150 MG] 150 mg PO BID 04/08/17 [ History] Clonazepam 0.5 mg [Klonopin 0.5 MG] 0.5 mg PO BID 04/08/17 [History] SUMAtriptan succinate [Imitrex 50 mg] 50 mg PO DAILY 04/08/17 [History] Hx Tetanus, Diphtheria Vaccination/Date Given: Yes Hx Influenza Vaccination/Date Given: No Hx Pneumococcal Vaccination/Date Given: No Immunizations Up to Date: No - Review of Systems Constitutional: No Fever, No Chills Eyes: No Symptoms Ears, Nose, & Throat: No Symptoms, Mouth Pain, Mouth Swelling, Loose Teeth Respiratory: No Cough, No Dyspnea Cardiac: No Chest Pain, No Edema, No Syncope Abdominal/Gastrointestinal: No Abdominal Pain, No Nausea, No Vomiting, No Diarrhea Genitourinary Symptoms: No Dysuria Musculoskeletal: No Back Pain, No Neck Pain Skin: No Rash Neurological: No Dizziness, No Focal Weakness, No Sensory Changes Psychological: No Symptoms Endocrine: No Symptoms All Other Systems: Reviewed and Negative - Past Medical History Pertinent Past Medical History: Yes Neurological History: Migraines Endocrine Medical History: Hypoglycemia Psycho-Social History: Anxiety, Depression Female Reproductive Disorders: Abnormal Uterine Bleeding, Endometriosis, Other Other Medical History: CERVICAL PRECANCER, OVARIAN CYSTS - Past Surgical History Past Surgical History: Yes Gastrointestinal: Cholecystectomy Female Surgical History: Hysterectomy, Section, Tubal Ligation Other Surgical History: D/C - Social History Smoking Status: Current every day smoker How long have you smoked: 14 Exposure to second hand smoke: Yes Drug Use: none Patient Lives Alone: No - Female History Hx Last Menstrual Period: hyster Hx Now: No - Nursing Vital Signs Nursing Vital Signs: Initial Vital Signs Temperature 98.6 F 04/06/18 22:42 Pulse Rate 84 04/06/18 22:42 Respiratory Rate 16 04/06/18 22:42 Blood Pressure 104/74 04/06/18 22:42 O2 Sat by Pulse Oximetry 100 04/06/18 22:42 Pain Scale Pain Intensity 7 - Physical Exam General Appearance: no apparent distress, alert Eye Exam: PERRL/EOMI, eyes nml inspection Ears, Nose, Throat Exam: normal ENT inspection, TMs normal, pharynx normal, moist mucous membranes, other (left premolar lower tooth abscess) Neck Exam: normal inspection, non-tender, supple, full range of motion Respiratory Exam: normal breath sounds, lungs clear, No respiratory distress Cardiovascular Exam: regular rate/rhythm, normal heart sounds, normal peripheral pulses Gastrointestinal/Abdomen Exam: soft, normal bowel sounds, No tenderness, No mass Back Exam: normal inspection, normal range of motion, No CVA tenderness, No vertebral tenderness Extremity Exam: normal inspection, normal range of motion, pelvis stable Neurologic Exam: alert, oriented x 3, cooperative, normal mood/affect, nml cerebellar function, nml station & gait, sensation nml, No motor deficits Skin Exam: normal color, warm, dry, No rash Lymphatic Exam: No adenopathy SpO2: 100 Oxygen Delivery: Room Air - Course Nursing assessment & vital signs reviewed: Yes - Progress Progress: improved, pain not gone completely Counseled pt/family regarding: diagnosis, need for follow-up (with Dentist) - Departure Time of Disposition: 22:55 Departure Disposition: Home Clinical Impression: Dental infection Condition: Stable Critical Care Time: No Referrals: JEFFERY TREVIZO [Primary Care Provider] - Instructions: Tooth Abscess (DC), Dental Pain (DC) Additional Instructions: JASMEET ARMSTRONG was seen on 04/06/18 n the Emergency Room. At that time you were treated for an emergent condition, during your visit Laboratory, Radiology and/or other procedures may have been ordered. It is very important that you follow-up with your Primary Care Physician JEFFERY TREVIZO within the next 24- 48 hours to review your Emergency Room visit and the final results of testing that was ordered. Some test results such as Urine Cultures, Blood Cultures, and other cultures if ordered will not be finalized for 24-48 hours. If you do not have a Primary Care Provider please call the medical records department at [phone] to obtain a copy of your results or you may sign into our patient portal to obtain these results by visiting us @ [email or web address] and completing the following steps: 1. Click on the Patient Portal link 2. Click the Patient Self Enrollment Link to complete the enrollment form and entering your 3. Once the enrollment form is completed you will receive an email with a temporary ID and password at the email address you provided. 4. Next choose a user name and password. Your user name must be at least 4 characters long and your password must be at least 4 characters long. 5. Choose a security question from the list and provide your answer to the question. If you already have signed into the Health Portal you may access your Health Care Information 27/03 by the following steps: 1. Login to our website @ [email or web address] 2. Enter your original user name and password. FAQS The [facility] Health Portal is an online tool that contains your Lab Results, Radiology Reports, Visit History, Discharge Instructions and Health Summary Lab and Radiology Results will not be available for 72 hours on the portal. The Portal is a secure site, passwords are encryted and URLs are re-written so they cannot be copied and pasted. You and authorized family members are the only ones who can access your Portal. Also there is a timeout feature that protects your information if you leave the Portal page open. If you have technical difficulty please use the Contact Us link on the page this will allow you to submit any questions you have regarding the Portal or you may contact the Medical Record Department at [phone]. Prescriptions: Amoxicillin 500 mg Cap [Amoxil 500 mg] 500 mg PO TID #30 capsule Naproxen 375 mg [Naprosyn 375 mg] 375 mg PO Q8H #30 tablet
[2018-04-06] MEDS ORDERED: TORAdol 30 mg Injection IM ONE (22:58)
[2018-04-06] MEDS ORDERED: Rocephin 1000 MG INJ ONE (23:01)
[2018-04-06] MEDS ORDERED: TORAdol 30 mg Injection ONE (23:01)
== END 2018-04-06 23:23 | disposition home or self-care (01) ==
LOC: ED 22:30
DX: F41.8 Other specified anxiety disorders (principal); Z85.41 Personal history of malignant neoplasm of cervix uteri; Z79.899 Other long term (current) drug therapy; Z72.0 Tobacco use
CPT/HCPCS: 96372; 99283; J0696; J1885

== ENCOUNTER 2022-02-17 15:43 | Emergency (ER) | payer OTHER ==
[2022-02-17 16:37] LABS: Absolute Neutrophil Ct (ANC) 4.52 x10^3/uL (1.4-6.9); Basophil (Absolute #) 0.03 x10^3/uL (0-0.4); Eosinophil (Absolute #) 0.14 x10^3/uL (0-0.5); Hematocrit 36.1 % (35-47); Hemoglobin 11.8 g/dL (12.0-16.0); Lymphocyte (Absolute #) 1.99 x10^3/uL (1.0-4.6); Lymphocytes % 27.8 % (24.0-44.0); Mean Cell Volume 89.6 fL (78-100); Mean Corpuscular Hemoglobin 29.3 pg (26-32); Mean Corpuscular Hgb Concent. 32.7 g/dL (32-36); Mean Platelet Volume 9.3 fL (7.5-11.0); Monocyte (Absolute #) 0.44 x10^3/uL (0.0-1.3); Monocytes % 6.2 % (0.0-12.0); Neutrophil % 63.2 % (36.0-66.0); Platelet Count 249 x10^3/uL (150-450); Red Blood Count 4.03 x10^6/uL (4.1-5.4); White Blood Count 7.2 x10^3/uL (4.0-10.5)
--- NOTE | 2022-02-17 16:42 | ERPHSYRPT ---
- History of Present Illness Historian: patient Exam Limitations: no limitations Patient Subjective Stated Complaint: Pt complains of abdominal distention with pains in the lower portion of the lower quadrants of her abdomen and pain in both flanks Triage Nursing Assessment: Pt brought to the ER by self but is on his way, vitals wnl, rates pain as 6/10, states that the pain is like labor pains although she has had a complete hysterectomy, pain in krys flanks, denies pain with urination, denies blood in urine, abdomen appears to look as though she is 6-7 months which she states is not normal, skin n/w/d, pulses normal, doesn't appear to be in any distress Physician History: 31 yo wf w lower abdominal pain/Distension x 2wks. She states that she has been been having good bowel movements and denies melena/hematochezia/diarrhea. Pt had some mild nausea/vomiting this AM. Hematemesis/Dysuria/hematuria/fever/trauma all denied. She has had a TAHBSO/gerard/C-sec. Timing/Duration: other (2 wks) Activities at Onset: rest Quality: aching Abdominal Pain Onset Location: RLQ, LLQ, suprapubic Pain Radiation: no radiation Severity of Pain-Max: moderate Severity of Pain-Current: moderate Modifying Factors: Improves With: nothing Associated Symptoms: denies symptoms Previous symptoms: no prior history Allergies/Adverse Reactions: No Known Drug Allergies Allergy (Verified 02/17/22 16:04) Home Medications: Bupropion HCl 150 mg Sr [Wellbutrin SR 150 MG] 150 mg PO DAILY 04/08/17 [History] Estradiol 1 mg [Estrace 1 mg] 1 mg PO DAILY 02/17/22 [History] Hx Tetanus, Diphtheria Vaccination/Date Given: Yes Hx Influenza Vaccination/Date Given: No Hx Pneumococcal Vaccination/Date Given: No Travel Risk - International Travel Have you traveled outside of the country in past 3 weeks: No - Coronavirus Screening Are you exhibiting any of the following symptoms?: No Close contact with a COVID-19 positive Pt in past 14-21 Days: No - Vaccine Status Have you recieved a Covid-19 vaccination: Yes Ophthalmology Technician: Moderna - Vaccination Dates Date of 2cond Vaccination (if applicable): n/a - Review of Systems Constitutional: No Symptoms Eyes: No Symptoms Ears, Nose, & Throat: No Symptoms Respiratory: No Symptoms Cardiac: No Symptoms Abdominal/Gastrointestinal: No Symptoms, Abdominal Pain, Nausea, Vomiting, No Diarrhea, No Constipation, No Hematemesis, No Hematochezia, No Melena, No Dysphagia, No Appetite Changes Genitourinary Symptoms: No Symptoms Musculoskeletal: No Symptoms Skin: No Symptoms Neurological: No Symptoms Psychological: No Symptoms Endocrine: No Symptoms Hematologic/Lymphatic: No Symptoms Immunological/Allergic: No Symptoms - Past Medical History Pertinent Past Medical History: Yes Neurological History: Migraines Endocrine Medical History: Hypoglycemia Psycho-Social History: Anxiety, Depression Female Reproductive Disorders: Abnormal Uterine Bleeding, Endometriosis, Other Other Medical History: CERVICAL PRECANCER, OVARIAN CYSTS - Past Surgical History Past Surgical History: Yes Gastrointestinal: Cholecystectomy Female Surgical History: Hysterectomy, Section, Tubal Ligation Other Surgical History: D/C - Social History Smoking Status: Current every day smoker How long have you smoked: 14 Exposure to second hand smoke: Yes Drug Use: none Patient Lives Alone: No Significant Family History: no pertinent family hx - Female History Hx Now: No (hysterectomy) - Nursing Vital Signs Nursing Vital Signs: Initial Vital Signs Temperature 97.7 F 02/17/22 15:52 Pulse Rate 94 H 02/17/22 15:52 Blood Pressure 114/82 02/17/22 15:52 O2 Sat by Pulse Oximetry 99 02/17/22 15:52 Pain Scale Pain Intensity 3 - Physical Exam General Appearance: no apparent distress Eye Exam: PERRL/EOMI, eyes nml inspection Ears, Nose, Throat Exam: normal ENT inspection, TMs normal, pharynx normal, moist mucous membranes Neck Exam: normal inspection, non-tender, supple, full range of motion, No meni ngismus, No mass, No Brudzinski, No Kernig's Respiratory Exam: normal breath sounds, lungs clear, airway intact, No respiratory distress Cardiovascular Exam: regular rate/rhythm, normal heart sounds, normal peripheral pulses, capillary refill <2 sec, No murmur Gastrointestinal/Abdomen Exam: tenderness (LLQ TTP>RLQ TTP/Hypoactive BS's), distention, No guarding Back Exam: normal inspection, normal range of motion, No CVA tenderness Extremity Exam: normal inspection, normal range of motion Neurologic Exam: alert, oriented x 3, cooperative, data center engineer II-XII nml as tested, normal mood/affect, nml cerebellar function, nml station & gait, sensation nml, No motor deficits, No sensory deficit Skin Exam: normal color, warm, dry Lymphatic Exam: No adenopathy SpO2 Interpretation: normal SpO2: 99 O2 Delivery: Room Air - Course Nursing assessment & vital signs reviewed: Yes - CT Exams Abdomen/Pelvis CT Interpretation: Discussed w/radiologist (MILLIGAN/Mild fecal stasis) Ordered Tests: Active Orders 24 hr Category Date Time Status ABDOMEN AND PELVIS W/0 CONTRAS [CT] Stat Exams 02/17/22 16:36 Taken AMYLASE Stat Lab 02/17/22 16:30 Completed CBC W DIFF Stat Lab 02/17/22 16:30 Completed CMP Stat Lab 02/17/22 16:30 Completed LIPASE Stat Lab 02/17/22 16:30 Completed UA W/RFX CULTURE Stat Lab 02/17/22 16:16 Completed Lab/Rad Data: Laboratory Result Diagrams 02/17/22 16:30 02/17/22 16:30 Laboratory Results 02/17/22 02/17/22 02/17/22 Range/Units 16:30 16:30 16:16 WBC 7.2 (4.0-10.5) x10^3/uL RBC 4.03 L (4.1-5.4) x10^6/uL Hgb 11.8 L (12.0-16.0) g/dL Hct 36.1 (35-47) % MCV 89.6 (78-100) fL MCH 29.3 (26-32) pg MCHC 32.7 (32-36) g/dL RDW 13.0 (11.5-14.0) % Plt Count 249 (150-450) x10^3/uL MPV 9.3 (7.5-11.0) fL Gran % 63.2 (36.0-66.0) % Immature Gran % (Auto) 0.4 (0.00-0.4) % Nucleat RBC Rel Count 0.0 (0.00-0.1) % Eos # (Auto) 0.14 (0-0.5) x10^3/uL Immature Gran # (Auto) 0.03 (0.00-0.03) x10^3u/L Absolute Lymphs (auto) 1.99 (1.0-4.6) x10^3/uL Absolute Monos (auto) 0.44 (0.0-1.3) x10^3/uL Absolute Nucleated RBC 0.00 (0.00-0.01) x10^3u/L Lymphocytes % 27.8 (24.0-44.0) % Monocytes % 6.2 (0.0-12.0) % Eosinophils % 2.0 (0.00-5.0) % Basophils % 0.4 (0.0-0.4) % Absolute Granulocytes 4.52 (1.4-6.9) x10^3/uL Basophils # 0.03 (0-0.4) x10^3/uL Sodium 139 (137-145) mmol/L Potassium 4.0 (3.5-5.1) mmol/L Chloride 109 H (98-107) mmol/L Carbon Dioxide 23 (22-30) mmol/L Anion Gap 11.1 (5-15) MEQ/L BUN 22 H (7-17) mg/dL Creatinine 0.61 (0.52-1.04) mg/dL Estimated GFR > 60.0 ML/MIN Glucose 109 H (74-106) mg/dL Calcium 8.6 (8.4-10.2) mg/dL Total Bilirubin 0.20 (0.2-1.3) mg/dL AST 19 (14-36) U/L ALT 18 (0-35) U/L Alkaline Phosphatase 64 (38-126) U/L Serum Total Protein 6.1 L (6.3-8.2) g/dL Albumin 3.5 (3.5-5.0) g/dL Amylase 69 (30-110) U/L Lipase 143 (23-300) U/L Urinalys Dipstick Clnc MAIN LAB Urine Color YELLOW (YELLOW) Urine Appearance CLEAR (CLEAR) Urine pH 6.5 (5-6) Ur Specific [place] >=1.030 (1.005-1.025) POC Urine Protein Conf NEGATIVE (Negative) Urine Ketones NEGATIVE (NEGATIVE) Urine Nitrite NEGATIVE (NEGATIVE) Urine Bilirubin NEGATIVE (NEGATIVE) Urine Urobilinogen 0.2 (0-1) mg/dL Urine Leukocytes NEGATIVE (NEGATIVE) Urine WBC (Auto) 0-2 (0-5) /HPF Urine RBC (Auto) 0-2 (0-2) /HPF U Epithel Cells (Auto) FEW (FEW) /HPF Urine Bacteria (Auto) NONE (NEGATIVE) /HPF Urine RBC TRACE-INTACT (0-5) Rashid/ul Urine Mucus (Auto) SLIGHT (NEGATIVE) /HPF Ur Culture Indicated? NO Urine Glucose NEGATIVE (NEGATIVE) mg/dL - Progress Counseled pt/family regarding: lab results, diagnosis, need for follow-up, [facility] - Departure Departure Disposition: Home Clinical Impression: Constipation, Abdominal pain, MILLIGNA (nonalcoholic steatohepatitis) Condition: Stable Critical Care Time: No Referrals: VALENTINA ASHER MD [Primary Care Provider] - Follow up/PCP as directed Instructions: Constipation, Adult (DC), Severe Abdominal Pain, Adult (DC), Nonalcoholic Fatty Liver Disease (DC) Additional Instructions: Follow up with your family Fluids Try a mild laxative Return to ER for increasing pain or temperature greater than 100.5 Prescriptions: Lactulose [Lactulose 20 gm/30Ml Ud Cup] 10 gm PO BID PRN #300 ml PRN Reason: Constipation
[2022-02-17 16:45] LABS: Appearance CLEAR (CLEAR); Bilirubin NEGATIVE (NEGATIVE); Dipstick done @ ? MAIN LAB; Glucose NEGATIVE (NEGATIVE); Ketones NEGATIVE (NEGATIVE); Nitrite NEGATIVE (NEGATIVE); Ph 6.5 (5-6); Protein,Urine Dip NEGATIVE (Negative); RBC TRACE-INTACT Ery/ul (0-5); Specific Gravity >=1.030 (1.005-1.025); Urobilinogen 0.2 mg/dL (0-1)
[2022-02-17 16:48] LABS: ALBUMIN 3.5 g/dL (3.5-5.0); ALKALINE PHOSPHATASE 64 U/L (38-126); AMYLASE 69 U/L (30-110); ANION GAP 11.1 MEQ/L (5-15); BLOOD UREA NITROGEN 22 mg/dL (7-17); CHLORIDE 109 mmol/L (98-107); Calcium 8.6 mg/dL (8.4-10.2); Carbon Dioxide 23 mmol/L (22-30); Creatinine 1 0.61 mg/dL (0.52-1.04); EST GLOMERULAR FILTRATION RATE > 60.0 ML/MIN; Glucose 109 mg/dL (74-106); LIPASE 143 U/L (23-300); SGOT/AST 19 U/L (14-36); SGPT/ALT 18 U/L (0-35); SODIUM 139 mmol/L (137-145); Total Protein 6.1 g/dL (6.3-8.2)
[2022-02-17 17:11] LABS: Epithelial Cells FEW /HPF (FEW); Mucus SLIGHT /HPF (NEGATIVE); RBC 0-2 /HPF (0-2); WBC 0-2 /HPF (0-5)
[2022-02-17 17:12] LABS: Urine Cultured Indicated? NO
[2022-02-17 18:06] VITALS: O2SAT 99
[2022-02-17 18:07] VITALS: BP 107/67; PULSE 82
--- NOTE | 2022-02-18 08:52 | XRAY ---
Indication: Abdomen pain, distention, nausea, and vomiting 2 weeks. Multiple contiguous axial images obtained through the abdomen and pelvis without contrast. Comparison: January 12, 2013. Lung bases demonstrates new small left lower lobe calcified granuloma. No infiltrate or effusion. Stomach distended with food/fluid. Noncontrasted stomach and bowel loops appear nonobstructed. There is now mild diffuse scattered colonic fecal debris throughout. No free fluid/air. Mild diffuse fatty liver. Again cholecystectomy. Interval hysterectomy. Remaining liver, pancreas, spleen, adrenal glands, kidneys, ureters, bladder, and aorta are unremarkable for noncontrast exam. Osseous structures intact. No ventral or inguinal hernias. Impression: 1. Mild diffuse fecal stasis and fatty liver. 2. Remaining CT abdomen/pelvis without contrast exam is negative.
== END 2022-02-17 18:14 | disposition home or self-care (01) ==
LOC: ED 15:43
DX: K75.81 Nonalcoholic steatohepatitis (NASH) (principal); K59.00 Constipation, unspecified; R10.31 Right lower quadrant pain; R10.32 Left lower quadrant pain; R11.2 Nausea with vomiting, unspecified; Z72.0 Tobacco use; Z79.899 Other long term (current) drug therapy
CPT/HCPCS: 36415; 74176; 80053; 81015; 82150; 83690; 85025; 99284

== ENCOUNTER 2023-01-12 15:06 | Emergency (ER) | payer OTHER ==
[2023-01-12] MEDS ORDERED: BENADRYL 50 MG/ML IV ONE (15:48)
[2023-01-12] MEDS ORDERED: Reglan 10 MG/2 ML IV ONE (15:48)
[2023-01-12] MEDS ORDERED: TYLENOL 325 MG PO ONE (15:48)
[2023-01-12] MEDS ORDERED: TORAdol 30 mg Injection IV ONE (15:48)
[2023-01-12] MEDS ORDERED: Sodium Chloride 0.9% 1000 ML 1,000 ML IV STA (15:48)
[2023-01-12] MEDS ORDERED: BENADRYL 50 MG/ML ONE (16:19)
[2023-01-12] MEDS ORDERED: TORAdol 30 mg Injection ONE (16:19)
[2023-01-12] MEDS ORDERED: Reglan 10 MG/2 ML ONE (16:20)
[2023-01-12] MEDS ORDERED: Sodium Chloride 0.9% 1000 ML 1,000 ML ONE (16:20)
[2023-01-12] MEDS ORDERED: TYLENOL 325 MG ONE (16:20)
[2023-01-12 17:04] VITALS: BP 92/46; PULSE 75; O2SAT 97
--- NOTE | 2023-01-12 17:09 | ERPHSYRPT ---
- History of Present Illness Time Seen by Provider: 01/12/23 15:31 Source: patient Exam Limitations: no limitations Patient Subjective Stated Complaint: Pt states "I have a horrible migraine. When they are this bad the only thing that fixes them is I come here and get a shot and it goes away." Triage Nursing Assessment: Pt presented alert and oriented x 3, skin pwd. Pt ambulates with an upright steady gait, able to speak in clear full setences. PT resting comfortably on the bed. Physician History: 32-year-old female with history of anxiety, depression, migraines, tobacco abuse presented in the ER with chief complaint of generalized headache started yesterday with associated nausea and vomiting. Patient describes generalized headache without focal numbness tingling weakness. Also complaining of some neck pain but no difficulty movements of neck. Headache is similar to previous and does not think this is the worst headache of her life. She has taken Excedrin Migraine with no significant relief. She used to take prophylactic medication which she is off now. Timing/Duration: yesterday, gradual onset, worse Quality: sharpness Head Pain Location: global Severity of Pain-Max: severe Severity of Pain-Current: severe Recent Head Trauma: no recent headache/trauma, frequent headaches Modifying Factors: Worsens With: exposure to light, movement, position Associated Symptoms: nausea/vomiting, neck pain, sensitive to light, No confusion, No facial pain, No fever/chills, No flushing, No light-headedness, No loss of consciousness, No nasal congestion, No nasal drainage, No sinus infection, No stiff neck, No trouble walking, No visual disturbance Previous symptoms: same symptoms as today Allergies/Adverse Reactions: No Known Drug Allergies Allergy (Verified 02/17/22 16:04) Home Medications: Bupropion HCl 150 mg Sr [Wellbutrin SR 150 MG] 150 mg PO DAILY 04/08/17 [History] Estradiol 1 mg [Estrace 1 mg] 1 mg PO DAILY 02/17/22 [History] Hx Tetanus, Diphtheria Vaccination/Date Given: Yes Hx Influenza Vaccination/Date Given: No Hx Pneumococcal Vaccination/Date Given: No Immunizations Up to Date: Yes Travel Risk - International Travel Have you traveled outside of the country in past 3 weeks: No - Coronavirus Screening Are you exhibiting any of the following symptoms?: No Close contact with a COVID-19 positive Pt in past 14-21 Days: No - Vaccine Status Have you recieved a Covid-19 vaccination: Yes 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 - Vaccination Dates Date of 2cond Vaccination (if applicable): n/a - Review of Systems Constitutional: No Symptoms Eyes: No Symptoms Ears, Nose, & Throat: No Symptoms Respiratory: No Symptoms Cardiac: No Symptoms Abdominal/Gastrointestinal: No Symptoms Genitourinary Symptoms: No Symptoms Skin: No Symptoms Neurological: Headache Endocrine: No Symptoms Hematologic/Lymphatic: No Symptoms - Past Medical History Pertinent Past Medical History: Yes Neurological History: Migraines Endocrine Medical History: Hypoglycemia Psycho-Social History: Anxiety, Depression Female Reproductive Disorders: Abnormal Uterine Bleeding, Endometriosis, Other Other Medical History: CERVICAL PRECANCER, OVARIAN CYSTS - Past Surgical History Past Surgical History: Yes Gastrointestinal: Cholecystectomy Female Surgical History: Hysterectomy, Section, Tubal Ligation Other Surgical History: D/C - Social History Smoking Status: Current every day smoker How long have you smoked: 14 Exposure to second hand smoke: Yes Drug Use: none Patient Lives Alone: No Significant Family History: no pertinent family hx - Female History Hx Last Menstrual Period: hysterectomy Hx Now: No - Nursing Vital Signs Nursing Vital Signs: Initial Vital Signs Temperature 97.6 F 01/12/23 15:14 Pulse Rate 94 H 01/12/23 15:14 Respiratory Rate 20 01/12/23 15:14 Blood Pressure 110/75 01/12/23 15:14 O2 Sat by Pulse Oximetry 97 01/12/23 15:14 Pain Scale Pain Intensity 4 - Physical Exam General Appearance: no apparent distress, alert Eye Exam: PERRL/EOMI Ears, Nose, Throat Exam: normal ENT inspection, TMs normal, pharynx normal, moist mucous membranes Neck Exam: normal inspection, non-tender, supple, full range of motion, No meningismus Respiratory Exam: normal breath sounds, lungs clear Cardiovascular Exam: regular rate/rhythm, normal heart sounds Gastrointestinal/Abdominal Exam: soft, normal bowel sounds, No tenderness Extremity Exam: normal inspection, normal range of motion Mental Status Exam: alert, oriented x 3, cooperative c engineer Exam: normal hearing, normal speech, PERRL Coordination/Gait Exam: normal finger to nose, normal gait, normal cerebellar function, negative Romberg's sign Motor/Sensory Exam: no motor deficit, no sensory deficit, no pronator drift, negative Babinski's sign DTR Exam: bicep (R): 2+, bicep (L): 2+, knee (R): 2+, knee (L): 2+ Skin Exam: normal color SpO2 Interpretation: normal SpO2: 97 O2 Delivery: Room Air Ordered Tests: Active Orders 24 hr Category Date Time Status IV Insertion STAT Care 01/12/23 15:48 Active Medication Summary Discontinued Medications Generic Name Dose Route Start Last Admin Trade Name Yayo PRN Reason Stop Dose Admin Acetaminophen 975 mg 01/12/23 15:48 01/12/23 16:24 Acetaminophen 325 Mg Tablet PO 01/12/23 15:49 975 mg STAT ONE Administration Acetaminophen Confirm 01/12/23 16:20 Acetaminophen 325 Mg Tablet Administered 01/12/23 16:21 Dose 975 mg .ROUTE .STK-MED ONE Diphenhydramine HCl 25 mg 01/12/23 15:48 01/12/23 16:28 Diphenhydramine Hcl 50 Mg/Ml Vial IV 01/12/23 15:49 25 mg STAT ONE Administration Diphenhydramine HCl Confirm 01/12/23 16:19 Diphenhydramine Hcl 50 Mg/Ml Vial Administered 01/12/23 16:20 Dose 50 mg .ROUTE .STK-MED ONE Sodium Chloride 1,000 mls @ 999 mls/hr 01/12/23 15:48 01/12/23 16:22 Sodium Chloride 0.9% 1000 Ml IV 01/12/23 16:48 999 mls/hr .Q1H1M STA Administration Sodium Chloride Confirm 01/12/23 16:20 Sodium Chloride 0.9% 1000 Ml Administered 01/12/23 16:21 Dose 1,000 mls @ ud .ROUTE .STK-MED ONE Ketorolac Tromethamine 30 mg 01/12/23 15:48 01/12/23 16:25 Ketorolac Tromethamine 30 Mg/Ml Inj IV 01/12/23 15:49 30 mg STAT ONE Administration Ketorolac Tromethamine Confirm 01/12/23 16:19 Ketorolac Tromethamine 30 Mg/Ml Inj Administered 01/12/23 16:20 Dose 30 mg .ROUTE .STK-MED ONE Metoclopramide HCl 10 mg 01/12/23 15:48 01/12/23 16:30 Metoclopramide Hcl 10 Mg/2 Ml Vial IV 01/12/23 15:49 10 mg STAT ONE Administration Metoclopramide HCl Confirm 01/12/23 16:20 Metoclopramide Hcl 10 Mg/2 Ml Vial Administered 01/12/23 16:21 Dose 10 mg .ROUTE .STK-MED ONE - Progress Progress: improved, re-examined Air Movement: good Progress Note: 01/12/23 17:08 32 years old with history of migraine poorly controlled, anxiety, depression, tobacco abuse is evaluated for generalized headache with no focal neurodeficit noticed throughout stay in the ER. Headache is similar to previous, not the worst headache of her life, no nuchal rigidity. No fever or chills. She is given fluids and migraine cocktail with Toradol/Benadryl/Reglan, on reevaluation headache is completely resolved. Patient did tolerate oral food. Patient wants to go home and I believe it is reasonable. Do not think she needs any imaging or any other work-up and it is like her routine migraine. Recommended outpatient follow-up and possible neurology referral and placement on prophylactic antimigraine medications. Discussed signs symptoms of worsening needing return to ER which she seems understanding. Stable for discharge. Blood Culture(s) Obtained: No Antibiotics given: No Counseled pt/family regarding: diagnosis, need for follow-up Medical Desision Making - Diagnostic Testing Diagnostic test were ordered, analyzed, and reviewed by me: No - Risk of complications The pt has a mod risk of morbidity or mortality based on: Need for prescription drug management - Departure Departure Disposition: Home Clinical Impression: Migraine headache Condition: Stable Critical Care Time: No Referrals: VALENTINA ASHER MD [Primary Care Provider] - Follow up/PCP as directed Instructions: Headache, Adult (DC) Additional Instructions: Follow-up with primary care for reevaluation. Take Tylenol/ibuprofen as needed for headache. To ER for intractable headache, intractable vomiting, difficulty movements of neck, fever chills, numbness tingling or focal weakness. Prescriptions: Rizatriptan Benzoate [Maxalt] 5 mg PO Q3H/PRN PRN 10 Days #4 tablet MDD 20 PRN Reason: Headache
== END 2023-01-12 17:21 | disposition home or self-care (01) ==
LOC: ED 15:06
DX: G43.909 Migraine, unspecified, not intractable, without status migrainosus (principal); Z72.0 Tobacco use; Z20.828 Contact with and (suspected) exposure to other viral communicable diseases
CPT/HCPCS: 36000; 96374; 96375; 99284; J1200; J1885; A9270-GY

== ENCOUNTER 2023-06-06 11:28 | Emergency (ER) | payer OTHER ==
--- NOTE | 2023-06-06 11:37 | ERPHSYRPT ---
- History of Present Illness Time Seen by Provider: 06/06/23 11:37 Source: patient Exam Limitations: no limitations Physician History: This is an overweight 32-year-old white female patient Dr. Asher who has had symptoms as described below for 3 days. Symptoms were worse today. The symptoms include vomiting and diarrhea as well as loss of taste and smell today. She is also had some abdominal pain. She complains of arthralgias and myalgias. Patient also has a cough and shortness of breath. Patient took Robitussin and children's Tylenol this morning. She said she had a low-grade fever at that time. Patient is a daily smoker of cigarettes. Patient went to [facility] this morning and she stated her COVID test was negative. Patient has a history of migraine headaches, hypoglycemia, anxiety and depression issues. Timing/Duration: day(s) (3), worse Severity of Dyspnea-Max: moderate Severity of Dyspnea-Current: moderate Possible Cause: no prior episodes Associated Symptoms: cough, loss of appetite, No chest pain/discomfort Allergies/Adverse Reactions: No Known Drug Allergies Allergy (Verified 06/06/23 11:38) Hx Tetanus, Diphtheria Vaccination/Date Given: Yes Hx Influenza Vaccination/Date Given: No Hx Pneumococcal Vaccination/Date Given: No Travel Risk - International Travel Have you traveled outside of the country in past 3 weeks: No - Coronavirus Screening Are you exhibiting any of the following symptoms?: Yes Symptoms: Cough: New Onset, Shortness of Breath, Vomiting/Diarrhea, Loss of Taste or Smell, Headaches/Body Aches/Fatigue - Vaccine Status Have you recieved a Covid-19 vaccination: Yes 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 - Vaccination Dates Date of 2cond Vaccination (if applicable): n/a - Review of Systems Constitutional: Weakness Eyes: No Symptoms Ears, Nose, & Throat: No Symptoms Respiratory: Cough, Dyspnea Cardiac: No Symptoms Abdominal/Gastrointestinal: Abdominal Pain, Nausea, Vomiting, Diarrhea, Appetite Changes Genitourinary Symptoms: No Symptoms Musculoskeletal: No Symptoms Skin: No Symptoms Neurological: No Symptoms Psychological: No Symptoms Endocrine: No Symptoms Hematologic/Lymphatic: No Symptoms Immunological/Allergic: No Symptoms All Other Systems: Reviewed and Negative - Past Medical History Pertinent Past Medical History: Yes Neurological History: Migraines Endocrine Medical History: Hypoglycemia Psycho-Social History: Anxiety, Depression Female Reproductive Disorders: Abnormal Uterine Bleeding, Endometriosis, Other Other Medical History: CERVICAL PRECANCER, OVARIAN CYSTS - Past Surgical History Past Surgical History: Yes Gastrointestinal: Cholecystectomy Female Surgical History: Hysterectomy, Section, Tubal Ligation Other Surgical History: D/C - Social History Smoking Status: Current every day smoker How long have you smoked: 14 Exposure to second hand smoke: Yes Drug Use: none Patient Lives Alone: No Significant Family History: no pertinent family hx - Nursing Vital Signs Nursing Vital Signs: Initial Vital Signs Temperature 98.3 F 06/06/23 11:29 Pulse Rate 83 06/06/23 11:29 Blood Pressure 107/73 06/06/23 11:29 O2 Sat by Pulse Oximetry 97 06/06/23 11:29 Pain Scale Pain Intensity 5 - Physical Exam General Appearance: no apparent distress, alert, anxiety Eye Exam: PERRL/EOMI, eyes nml inspection Ears, Nose, Throat Exam: hearing grossly normal, normal ENT inspection, normal pharynx Neck Exam: normal inspection, non-tender, supple, full range of motion Respiratory Exam: normal breath sounds, lungs clear, airway intact, No chest tenderness, No respiratory distress Cardiovascular/Chest Exam: normal heart sounds, regular rate/rhythm Abdominal/Gastrointestinal Exam: soft, normal bowel sounds, tenderness, guarding (Mild diffuse mild diffuse to palpation) Rectal Exam: not done Extremity Exam: non-tender Neurologic Exam: alert, oriented x 3, cooperative, lens polisher hand II-XII nml as tested, normal mood/affect, nml cerebellar function, nml station & gait, sensation nml Skin Exam: normal color, warm, dry Lymphatic Exam: No adenopathy SpO2 Interpretation: normal O2 Delivery: Room Air - Course Nursing assessment & vital signs reviewed: Yes Ordered Tests: Active Orders 24 hr Category Date Time Status IV Insertion STAT Care 06/06/23 12:01 Active ABDOMEN AND PELVIS W/0 CONTRAS [CT] Stat Exams 06/06/23 12:04 Completed CHEST 1 VIEW (PORTABLE) Stat Exams 06/06/23 12:13 Completed BLOOD CULTURE Stat Lab 06/06/23 12:43 Received CBC W DIFF Stat Lab 06/06/23 12:30 Completed CMP Stat Lab 06/06/23 12:01 Completed MONO SCREEN Stat Lab 06/06/23 Completed UA W/RFX UR CULTURE Stat Lab 06/06/23 14:29 Completed Medication Summary Discontinued Medications Generic Name Dose Route Start Last Admin Trade Name Freq PRN Reason Stop Dose Admin Hydrocodone Bitart/Acetaminophen 10 ml 06/06/23 12:40 06/06/23 13:00 Hydrocodone/Acetaminophen 5 Ml Udcup PO 06/06/23 12:41 10 ml STAT STA Administration Hydrocodone Bitart/Acetaminophen Confirm 06/06/23 12:57 Hydrocodone/Acetaminophen 5 Ml Udcup Administered 06/06/23 12:58 Dose 10 ml .ROUTE .STK-MED ONE Methylprednisolone Sodium 0 mg 06/06/23 12:40 06/06/23 13:00 Succinate 125 mg/ Sterile IV 06/06/23 12:41 125 mg Water 2 ml STAT ONE Administration Sodium Chloride 1,000 mls @ 999 mls/hr 06/06/23 12:01 06/06/23 13:39 Sodium Chloride 0.9% 1000 Ml IV 06/06/23 13:01 Infused .Q1H1M STA Infusion Sodium Chloride Confirm 06/06/23 12:36 Sodium Chloride 0.9% 1000 Ml Administered 06/06/23 12:37 Dose 1,000 mls @ ud .ROUTE .STK-MED ONE Methylprednisolone Sodium Succinate Confirm 06/06/23 12:57 Methylprednis Sod Succ 125 Mg/2 Ml Vial Administered 06/06/23 12:58 Dose 125 mg .ROUTE .STK-MED ONE Ondansetron HCl 4 mg 06/06/23 12:01 06/06/23 12:38 Ondansetron Hcl 4 Mg/2 Ml Vial IV 06/06/23 12:02 4 mg STAT STA Administration Ondansetron HCl Confirm 06/06/23 12:35 Ondansetron Hcl 4 Mg/2 Ml Vial Administered 06/06/23 12:36 Dose 4 mg .ROUTE .STK-MED ONE Pantoprazole Sodium 40 mg 06/06/23 12:01 06/06/23 12:38 Pantoprazole 40 Mg Vial IV 06/06/23 12:02 40 mg STAT ONE Administration Pantoprazole Sodium Confirm 06/06/23 12:35 Pantoprazole 40 Mg Vial Administered 06/06/23 12:36 Dose 40 mg IV .STK-MED ONE Sterile Water Confirm 06/06/23 12:57 Water For Injection,Sterile 10 Ml Vial Administered 06/06/23 12:58 Dose 10 ml IJ .STK-MED ONE Lab/Rad Data: Laboratory Result Diagrams 06/06/23 12:30 06/06/23 12:01 Laboratory Results 06/06/23 06/06/23 06/06/23 Range/Units Unknown Unknown 14:29 WBC (4.0-10.5) x10^3/uL RBC (4.1-5.4) x10^6/uL Hgb (12.0-16.0) g/dL Hct (35-47) % MCV (78-100) fL MCH (26-32) pg MCHC (32-36) g/dL RDW (11.5-14.0) % Plt Count (150-450) x10^3/uL MPV (7.5-11.0) fL Gran % (36.0-66.0) % Immature Gran % (Auto) (0.00-0.4) % Nucleat RBC Rel Count (0.00-0.1) % Eos # (Auto) (0-0.5) x10^3/uL Immature Gran # (Auto) (0.00-0.03) x10^3u/L Absolute Lymphs (auto) (1.0-4.6) x10^3/uL Absolute Monos (auto) (0.0-1.3) x10^3/uL Absolute Nucleated RBC (0.00-0.01) x10^3u/L Lymphocytes % (24.0-44.0) % Monocytes % (0.0-12.0) % Eosinophils % (0.00-5.0) % Basophils % (0.0-0.4) % Absolute Granulocytes (1.4-6.9) x10^3/uL Basophils # (0-0.4) x10^3/uL Sodium (137-145) mmol/L Potassium (3.5-5.1) mmol/L Chloride (98-107) mmol/L Carbon Dioxide (22-30) mmol/L Anion Gap (5-15) MEQ/L BUN (7-17) mg/dL Creatinine (0.52-1.04) mg/dL Estimated GFR ML/MIN Glucose (74-106) mg/dL Calcium (8.4-10.2) mg/dL Total Bilirubin (0.2-1.3) mg/dL AST (14-36) U/L ALT (0-35) U/L Alkaline Phosphatase (38-126) U/L Serum Total Protein (6.3-8.2) g/dL Albumin (3.5-5.0) g/dL Urine Color Yellow (Yellow) Urine Appearance Clear (Clear) Urine pH 5.5 (4.6-8.0) Ur Specific [place] 1.025 (1.005-1.030) Urine Protein Negative (Negative) Urine Glucose (UA) Negative (Negative) mg/dL Urine Ketones Negative (Negative) Urine Blood Negative (Negative) Urine Nitrite Negative (Negative) Urine Bilirubin Negative (Negative) Urine Urobilinogen 1.0 A (0.2) mg/dL Ur Leukocyte Esterase Negative (Negative) U Hyaline Cast (Auto) NONE SEEN (0-2) /LPF Urine Microscopic RBC 3-5 (0-5) /HPF Urine Microscopic WBC 0-2 (0-5) /HPF Ur Epithelial Cells Rare (None Seen) /HPF Urine Bacteria None Seen (None Seen) /HPF Urine Culture Reflexed NO (NO) Monoscreen NEGATIVE (NEGATIVE) Influenza Type A Ag NEGATIVE (NEGATIVE) Influenza Type B Ag NEGATIVE (NEGATIVE) RSV (PCR) NEGATIVE (NEGATIVE) SARS-CoV-2 (PCR) NEGATIVE (NEGATIVE) Group A Strep Antibody (NEGATIVE) 06/06/23 06/06/23 06/06/23 Range/Units 12:30 12:03 12:01 WBC 7.2 (4.0-10.5) x10^3/uL RBC 4.47 (4.1-5.4) x10^6/uL Hgb 13.0 (12.0-16.0) g/dL Hct 39.5 (35-47) % MCV 88.4 (78-100) fL MCH 29.1 (26-32) pg MCHC 32.9 (32-36) g/dL RDW 12.7 (11.5-14.0) % Plt Count 261 (150-450) x10^3/uL MPV 9.5 (7.5-11.0) fL Gran % 73.4 H (36.0-66.0) % Immature Gran % (Auto) 0.6 H (0.00-0.4) % Nucleat RBC Rel Count 0.0 (0.00-0.1) % Eos # (Auto) 0.18 (0-0.5) x10^3/uL Immature Gran # (Auto) 0.04 H (0.00-0.03) x10^3u/L Absolute Lymphs (auto) 1.13 (1.0-4.6) x10^3/uL Absolute Monos (auto) 0.54 (0.0-1.3) x10^3/uL Absolute Nucleated RBC 0.00 (0.00-0.01) x10^3u/L Lymphocytes % 15.7 L (24.0-44.0) % Monocytes % 7.5 (0.0-12.0) % Eosinophils % 2.5 (0.00-5.0) % Basophils % 0.3 (0.0-0.4) % Absolute Granulocytes 5.28 (1.4-6.9) x10^3/uL Basophils # 0.02 (0-0.4) x10^3/uL Sodium 143 (137-145) mmol/L Potassium 4.0 (3.5-5.1) mmol/L Chloride 109 H (98-107) mmol/L Carbon Dioxide 22 (22-30) mmol/L Anion Gap 16.0 H (5-15) MEQ/L BUN 16 (7-17) mg/dL Creatinine 0.52 (0.52-1.04) mg/dL Estimated GFR > 60.0 ML/MIN Glucose 91 (74-106) mg/dL Calcium 8.5 (8.4-10.2) mg/dL Total Bilirubin 0.20 (0.2-1.3) mg/dL AST 27 (14-36) U/L ALT 28 (0-35) U/L Alkaline Phosphatase 77 (38-126) U/L Serum Total Protein 6.5 (6.3-8.2) g/dL Albumin 3.9 (3.5-5.0) g/dL Urine Color (Yellow) Urine Appearance (Clear) Urine pH (4.6-8.0) Ur Specific [place] (1.005-1.030) Urine Protein (Negative) Urine Glucose (UA) (Negative) mg/dL Urine Ketones (Negative) Urine Blood (Negative) Urine Nitrite (Negative) Urine Bilirubin (Negative) Urine Urobilinogen (0.2) mg/dL Ur Leukocyte Esterase (Negative) U Hyaline Cast (Auto) (0-2) /LPF Urine Microscopic RBC (0-5) /HPF Urine Microscopic WBC (0-5) /HPF Ur Epithelial Cells (None Seen) /HPF Urine Bacteria (None Seen) /HPF Urine Culture Reflexed (NO) Monoscreen (NEGATIVE) Influenza Type A Ag (NEGATIVE) Influenza Type B Ag (NEGATIVE) RSV (PCR) (NEGATIVE) SARS-CoV-2 (PCR) (NEGATIVE) Group A Strep Antibody NOT DETECTED (NEGATIVE) - Progress Progress: improved, re-examined Air Movement: good Progress Note: 06/06/23 12:49 This patient's medical issue is 1 of moderate complexity. The level complexity in the work-up performed is based on review of the patient's past medical history, review of the patient's medication list, review of patient drug allergy list, history of present illness and physical findings on examination. This patient work-up includes a chest x-ray, CT scan of the abdomen pelvis, placement of intravenous line, infusion of 1 L normal saline solution, infusion of Zofran 4 mg, hydrocodone elixir, CBC, CMP, Monospot test, urinalysis, repeat COVID, influenza a and B, RSV test. 06/06/23 14:49 I reviewed the results of the work-up. The patient blood work does not show anything acute or emergent. Chest x-ray shows no acute cardiopulmonary process. I reviewed the results of the radiology interpretation. CT scan of the abdomen pelvis without contrast was performed and interpreted by the radiologist. There is no evidence of any acute intra-abdominal or intrapelvic abnormality. Blood Culture(s) Obtained: Yes Antibiotics given: No Counseled pt/family regarding: lab results, diagnosis, need for follow-up, rad results Medical Desision Making - Diagnostic Testing Diagnostic test were ordered, analyzed, and reviewed by me: Yes Radiological Interpretation: Reviewed by me, Teleradiologist Report - Risk of complications The pt has a mod risk of morbidity or mortality based on: Need for prescription drug management - Departure Departure Disposition: Home Clinical Impression: Vomiting and diarrhea, Flu-like symptoms, Bronchitis Condition: Stable Critical Care Time: No Referrals: VALENTINA ASHER MD [Primary Care Provider] - Follow up/PCP as directed Additional Instructions: Drink plenty of fluids. Avoid exposure to any type of smoke. Take your medications as prescribed. Follow-up with your primary care provider for further evaluation management. Prescriptions: Hydrocodone/Acetaminophen [Hydrocodone-Acetamn 7.5-325/15] 10 ml PO Q8H PRN PRN #120 ml MDD 30 ml PRN Reason: Cough Prednisone 10 mg [Deltasone 10 mg] 10 mg PO TID #12 tablet
[2023-06-06 11:38] VITALS: PULSE 83; TEMP 98.3; O2SAT 97
[2023-06-06] MEDS ORDERED: Zofran 4 MG/2 ML VIAL IV STA (12:01)
[2023-06-06] MEDS ORDERED: PROTONIX 40 MG IV IV ONE ×2 (12:01→12:35)
[2023-06-06] MEDS ORDERED: Sodium Chloride 0.9% 1000 ML 1,000 ML IV STA (12:01)
[2023-06-06] MEDS ORDERED: Zofran 4 MG/2 ML VIAL ONE (12:35)
[2023-06-06] MEDS ORDERED: Sodium Chloride 0.9% 1000 ML 1,000 ML ONE (12:36)
[2023-06-06] MEDS ORDERED: HYDROCODONE-ACETAMIN 2.5-108/5 ML SOLUTION PO STA (12:40)
[2023-06-06] MEDS ORDERED: solu-MEDROL 125 MG, Sterile H2O 10 ml 2 ML IV ONE ×2 (12:40)
--- NOTE | 2023-06-06 12:40 | XRAY ---
Indication: Cough, short of breath, and body aches. Comparison: November 10, 2016 Portable chest again demonstrates normal heart, lungs, and bony thorax with incidental calcified granulomas.
--- NOTE | 2023-06-06 12:40 | XRAY ---
Indication: Abdomen pain, nausea, vomiting, diarrhea, and body aches. Multiple contiguous axial images obtained through the abdomen and pelvis without contrast. Comparison: February 17, 2022 Lung bases remain clear again with incidental small left lower lobe calcified granuloma. Heart not enlarged with incidental tiny left infrahilar calcified nodes. Noncontrasted stomach and bowel loops are nonobstructed with normal appearing appendix. Again fatty liver, cholecystectomy, and hysterectomy. No free fluid/air. Remaining pancreas, spleen, adrenal glands, kidneys, ureters, bladder, and aorta are unremarkable for noncontrast exam. Osseous structures intact. Small fatty supraumbilical ventral hernia. Impression: Again fatty liver, small fatty supraumbilical hernia, and old granulomatous disease. Remaining CT abdomen/pelvis without contrast exam continues to be negative.
[2023-06-06 12:55] LABS: Absolute Neutrophil Ct (ANC) 5.28 x10^3/uL (1.4-6.9); BASOPHIL % 0.3 % (0.0-0.4); Basophil (Absolute #) 0.02 x10^3/uL (0-0.4); Eosinophil % 2.5 % (0.00-5.0); Eosinophil (Absolute #) 0.18 x10^3/uL (0-0.5); Hematocrit 39.5 % (35-47); IMMATURE GRAN # 0.04 x10^3u/L (0.00-0.03); IMMATURE GRAN % 0.6 % (0.00-0.4); Lymphocyte (Absolute #) 1.13 x10^3/uL (1.0-4.6); Lymphocytes % 15.7 % (24.0-44.0); Mean Cell Volume 88.4 fL (78-100); Mean Corpuscular Hemoglobin 29.1 pg (26-32); Mean Corpuscular Hgb Concent. 32.9 g/dL (32-36); Mean Platelet Volume 9.5 fL (7.5-11.0); Monocyte (Absolute #) 0.54 x10^3/uL (0.0-1.3); Monocytes % 7.5 % (0.0-12.0); Neutrophil % 73.4 % (36.0-66.0); Platelet Count 261 x10^3/uL (150-450); Red Blood Count 4.47 x10^6/uL (4.1-5.4); Red Cell Distribution Width 12.7 % (11.5-14.0); White Blood Count 7.2 x10^3/uL (4.0-10.5)
[2023-06-06] MEDS ORDERED: HYDROCODONE-ACETAMIN 2.5-108/5 ML SOLUTION ONE (12:57)
[2023-06-06] MEDS ORDERED: solu-MEDROL ONE (12:57)
[2023-06-06] MEDS ORDERED: Sterile H2O 10 ml IJ ONE (12:57)
[2023-06-06 13:09] LABS: ALBUMIN 3.9 g/dL (3.5-5.0); ALKALINE PHOSPHATASE 77 U/L (38-126); BLOOD UREA NITROGEN 16 mg/dL (7-17); CHLORIDE 109 mmol/L (98-107); Calcium 8.5 mg/dL (8.4-10.2); Carbon Dioxide 22 mmol/L (22-30); Creatinine 1 0.52 mg/dL (0.52-1.04); EST GLOMERULAR FILTRATION RATE > 60.0 ML/MIN; Glucose 91 mg/dL (74-106); SGOT/AST 27 U/L (14-36); SGPT/ALT 28 U/L (0-35); SODIUM 143 mmol/L (137-145); Total Protein 6.5 g/dL (6.3-8.2)
[2023-06-06 13:30] LABS: INFLUENZA A NEGATIVE (NEGATIVE); INFLUENZA B NEGATIVE (NEGATIVE); RESPIRATORY SYNCTIAL VIRUS NEGATIVE (NEGATIVE); SARS-CoV-2 Xpert Express NEGATIVE (NEGATIVE)
[2023-06-06 14:40] LABS: Appearance Clear (Clear); Bacteria None Seen /HPF (None Seen); Bilirubin Negative (Negative); Blood Negative (Negative); Epithelial Cells Rare /HPF (None Seen); Glucose, Urine Negative (Negative); Hyaline Casts NONE SEEN /LPF (0-2); Ketones Negative (Negative); Leukocyte Esterase Negative (Negative); Nitrite Negative (Negative); Ph 5.5 (4.6-8.0); Protein,Urine Dip Negative (Negative); Specific Gravity 1.025 (1.005-1.030); WBC 0-2 /HPF (0-5)
[2023-06-06 14:59] LABS: ADD URINE CULTURE? NO (NO)
[2023-06-06 15:07] VITALS: BP 95/69
== END 2023-06-06 15:13 | disposition home or self-care (01) ==
LOC: ED 11:28
DX: J40 Bronchitis, not specified as acute or chronic (principal); R11.10 Vomiting, unspecified; R19.7 Diarrhea, unspecified; R43.8 Other disturbances of smell and taste; R10.9 Unspecified abdominal pain; M79.10 Myalgia, unspecified site; R05.1 Acute cough; R06.02 Shortness of breath; Z79.891 Long term (current) use of opiate analgesic; Z79.52 Long term (current) use of systemic steroids; Z72.0 Tobacco use
CPT/HCPCS: 0241U; 36000; 36415; 71045; 74176; 80053; 81001; 85025; 86308; 87040; 87651; 96374; 96375; 99284; J2405; J2930; A9270-GY

== ENCOUNTER 2023-09-03 22:17 | Emergency (ER) | payer OTHER ==
[2023-09-03 22:56] VITALS: RESP 18; TEMP 98.4; O2SAT 97
[2023-09-03 23:20] VITALS: BP 124/87; PULSE 88
== END 2023-09-03 23:22 | disposition left against medical advice (07) ==
LOC: ED 22:17
DX: R51.9 Headache, unspecified (principal)
CPT/HCPCS: 99281; G0463

== ENCOUNTER 2024-09-21 12:20 | Emergency (ER) | payer OTHER ==
[2024-09-21 12:36] VITALS: BP 105/84; PULSE 80; TEMP 99; O2SAT 98
--- NOTE | 2024-09-21 13:04 | ERPHSYRPT ---
- History of Present Illness Time Seen by Provider: 09/21/24 12:55 Source: patient Exam Limitations: no limitations Patient Subjective Stated Complaint: pt here for a cough and fever Triage Nursing Assessment: pt alert, walked in, resp easy, skin w/d/p, has dry coarse cough . Physician History: 33yo f presents via private vehicle for 1d of cough, fevers, body aches. Pt reports the cough is non-productive, endorses sick contact at home - son. Pt denies any cp, sob, n/v/d. Pt has not taken any medications for her sx, reports she has been out of medicine at home. Timing/Duration: yesterday Cough Quality/Degree: mild Possible Cause: no prior episodes Modifying Factors: Improves With: nothing Associated Symptoms: fever, chills, cough, nasal congestion, No chest pain/soreness, No shortness of breath Allergies/Adverse Reactions: No Known Drug Allergies Allergy (Verified 09/21/24 12:34) Hx Tetanus, Diphtheria Vaccination/Date Given: No Hx Influenza Vaccination/Date Given: No Hx Pneumococcal Vaccination/Date Given: No Immunizations Up to Date: Yes Travel Risk - International Travel Have you traveled outside of the country in past 3 weeks: No - Emerging Infectious Disease Are you exhibiting symptoms associated with any current EIDs: Yes Symptoms: Cough: New Onset, Fever - Review of Systems Constitutional: Fever, Chills Respiratory: Cough, No Stridor, No Wheezing Cardiac: No Symptoms Abdominal/Gastrointestinal: No Symptoms - Past Medical History Pertinent Past Medical History: No Neurological History: Migraines Endocrine Medical History: Hypoglycemia Psycho-Social History: Anxiety, Depression Female Reproductive Disorders: Abnormal Uterine Bleeding, Endometriosis, Other Other Medical History: CERVICAL PRECANCER, OVARIAN CYSTS - Past Surgical History Past Surgical History: Yes Gastrointestinal: Cholecystectomy Female Surgical History: Hysterectomy, Section, Tubal Ligation Other Surgical History: D/C Significant Family History: no pertinent family hx - Female History Hx Last Menstrual Period: hyster Hx Now: No - Social History Smoking Status: Current every day smoker How long have you smoked: 14 Exposure to second hand smoke: Yes Drug Use: none Patient Lives Alone: No - Social Determinants of Health Will the patient participate in the screening: Declined to provide Comment: pt wont get off phone to answer - Nursing Vital Signs Nursing Vital Signs: Initial Vital Signs Temperature 99.0 F 09/21/24 12:35 Pulse Rate 80 09/21/24 12:35 Respiratory Rate 18 09/21/24 12:35 Blood Pressure 105/84 09/21/24 12:35 O2 Sat by Pulse Oximetry 98 09/21/24 12:35 Pain Scale Pain Intensity 6 - Physical Exam General Appearance: no apparent distress, alert Respiratory Exam: normal breath sounds, lungs clear, airway intact, No chest tenderness, No respiratory distress Cardiovascular Exam: regular rate/rhythm, normal heart sounds, normal peripheral pulses Gastrointestinal/Abdomen Exam: soft, normal bowel sounds, No tenderness, No distention SpO2: 98 Ordered Tests: Medication Summary Discontinued Medications Generic Name Dose Route Start Last Admin Trade Name Yayo PRN Reason Stop Dose Admin Acetaminophen 975 mg 09/21/24 13:03 09/21/24 13:10 Acetaminophen 325 Mg Tablet PO 09/21/24 13:04 975 mg STAT ONE Administration Acetaminophen Confirm 09/21/24 13:09 Acetaminophen 325 Mg Tablet Administered 09/21/24 13:10 Dose 975 mg .ROUTE .STK-MED ONE - Progress Progress: improved Air Movement: good Progress Note: 09/21/24 13:54 given tylenol 975mg w/ improvement in body aches flu A positive plan for discharge home w/ tamiflu prescription follow up w/ Dr Asher in 1-2wks recommend plenty of oral hydration w/ clear liquids recommend tylenol/ibuprofen every 6 hours for fever/aches return to ED if: become unable to tolerate oral intake, fever does not respond to tylenol/ibuprofen, develop changes in mental status Blood Culture(s) Obtained: No Antibiotics given: No Counseled pt/family regarding: lab results, diagnosis Medical Desision Making - Risk of complications Low Risk: Low risk of morbidity from additional dx testing or treatment - Departure Departure Disposition: Home Clinical Impression: Influenza A Condition: Stable Critical Care Time: No Referrals: VALENTINA ASHER MD [Primary Care Provider] - Follow up/PCP as directed Additional Instructions: plan for discharge home w/ tamiflu prescription follow up w/ Dr Asher in 1-2wks recommend plenty of oral hydration w/ clear liquids recommend tylenol/ibuprofen every 6 hours for fever/aches return to ED if: become unable to tolerate oral intake, fever does not respond to tylenol/ibuprofen, develop changes in mental status Prescriptions: Oseltamivir Phosphate [Tamiflu] 75 mg PO BID 5 Days #10 cap
[2024-09-21] MEDS ORDERED: TYLENOL 325 MG ONE (13:09)
[2024-09-21] MEDS: TYLENOL 325 MG PO ONE (13:10)
[2024-09-21 13:25] VITALS: RESP 18
[2024-09-21 13:42] LABS: INFLUENZA B NEGATIVE (NEGATIVE); RESPIRATORY SYNCTIAL VIRUS NEGATIVE (NEGATIVE); SARS-CoV-2 Xpert Express NEGATIVE (NEGATIVE)
[2024-09-21 13:43] LABS: INFLUENZA A POSITIVE (NEGATIVE)
== END 2024-09-21 14:09 | disposition home or self-care (01) ==
LOC: ED 12:20
DX: J10.1 Influenza due to other identified influenza virus with other respiratory manifestations (principal); R05.1 Acute cough; R50.9 Fever, unspecified; M79.10 Myalgia, unspecified site; Z79.899 Other long term (current) drug therapy; Z72.0 Tobacco use
CPT/HCPCS: 0241U; 99284; 99283; A9270-GY

== ENCOUNTER 2024-10-22 19:08 | Emergency (ER) | payer OTHER | END 2024-10-22 20:24 | disposition left against medical advice (07) | LOC: ED 19:08 | DX: Z53.21 Procedure and treatment not carried out due to patient leaving prior to being seen by health care provider (principal) ==

== ENCOUNTER 2024-11-09 14:59 | Emergency (ER) | payer OTHER ==
[2024-11-09] MEDS ORDERED: Adacel Vial IM ONE (15:08)
[2024-11-09] MEDS: Adacel Vial IM ONE (15:14)
[2024-11-09 15:16] VITALS: BP 122/92; PULSE 97; RESP 20; TEMP 97.9; O2SAT 97
--- NOTE | 2024-11-09 15:25 | ERPHSYRPT ---
- History of Present Illness Time Seen by Provider: 11/09/24 15:20 Source: patient Exam Limitations: no limitations Patient Subjective Stated Complaint: Laceration Triage Nursing Assessment: Patient ambulated back to ED and transferred self to bed. Patient A+O X3. Patient's skin pink, warm and dry. Patient complains of laceration to right hand, thumb. Patient states she was washing dishes when a glass broke and cut her right hand, thumb. Physician History: Patient complains of laceration to right hand, thumb. Patient states she was washing dishes when a glass broke and cut her right hand, thumb. contused skin. Timing/Duration: today Severity: mild Associated Symptoms: denies symptoms Allergies/Adverse Reactions: No Known Drug Allergies Allergy (Verified 11/09/24 15:03) Home Medications: No Reportable Medications [No Reported Medications] 11/09/24 [History] Hx Tetanus, Diphtheria Vaccination/Date Given: No Hx Influenza Vaccination/Date Given: No Hx Pneumococcal Vaccination/Date Given: No Immunizations Up to Date: Yes Travel Risk - International Travel Have you traveled outside of the country in past 3 weeks: No - Emerging Infectious Disease Are you exhibiting symptoms associated with any current EIDs: No Symptoms: Cough: New Onset, Fever - Review of Systems Constitutional: No Symptoms Eyes: No Symptoms Ears, Nose, & Throat: No Symptoms Respiratory: No Symptoms Cardiac: No Symptoms Abdominal/Gastrointestinal: No Symptoms Genitourinary Symptoms: No Symptoms Musculoskeletal: No Symptoms Skin: Other (contused sliced skin on right thumb) Neurological: No Symptoms Psychological: No Symptoms Endocrine: No Symptoms Hematologic/Lymphatic: No Symptoms Immunological/Allergic: No Symptoms - Past Medical History Pertinent Past Medical History: Yes Neurological History: Migraines Endocrine Medical History: Diabetes Type II, Hypoglycemia Psycho-Social History: Anxiety, Depression Female Reproductive Disorders: Abnormal Uterine Bleeding, Endometriosis, Other Other Medical History: CERVICAL PRECANCER, OVARIAN CYSTS - Past Surgical History Past Surgical History: Yes Gastrointestinal: Cholecystectomy Female Surgical History: Hysterectomy, Section, Tubal Ligation Other Surgical History: D/C Significant Family History: no pertinent family hx - Female History Hx Last Menstrual Period: hysterectomy Hx Now: No - Social History Smoking Status: Current every day smoker How long have you smoked: 14 Exposure to second hand smoke: Yes Drug Use: none - Social Determinants of Health Will the patient participate in the screening: Yes Do you worry about a steady place to live?: No Do you have any problems with any of the following?: No known problems In the past 12 months,have you had to go without utilities?: No Transportation Issues: No Has anyone in your support network made you feel unsafe?: No Have you or anyone in your house had to go w/o enough food: No - Nursing Vital Signs Nursing Vital Signs: Initial Vital Signs Blood Pressure 122/92 11/09/24 15:01 Pain Scale Pain Intensity 3 - Physical Exam General Appearance: no apparent distress Eye Exam: PERRL/EOMI Ears, Nose, Throat Exam: normal ENT inspection Neck Exam: normal inspection Respiratory Exam: normal breath sounds Cardiovascular Exam: regular rate/rhythm Gastrointestinal/Abdomen Exam: soft Back Exam: normal inspection Extremity Exam: normal inspection, lacerations (contused sliced wound, on right dorsum of thumb. 1 cms area of contused skin) Neurologic Exam: alert, oriented x 3 SpO2: 97 - Course Nursing assessment & vital signs reviewed: Yes - Radiology Exams Hand X-ray Interpretation: Interpreted by me, Reviewed by me, No Fracture, Other (No foreign body) Ordered Tests: Active Orders 24 hr Category Date Time Status Wound Care STAT Care 11/09/24 15:06 Active HAND (MINIMUM 3 VIEWS) Stat Exams 11/09/24 15:16 Ordered Medication Summary Discontinued Medications Generic Name Dose Route Start Last Admin Trade Name Freq PRN Reason Stop Dose Admin Diphtheria/Tetanus/Acell Pertussis 0.5 ml 11/09/24 15:07 11/09/24 15:14 Tdap --Diph,Pertuss(Acell),Tet Vac/Pf 0.5 Ml Vial IM 11/09/24 15:08 0.5 ml .ONCE ONE Administration Diphtheria/Tetanus/Acell Pertussis Confirm 11/09/24 15:08 Tdap --Diph,Pertuss(Acell),Tet Vac/Pf 0.5 Ml Vial Administered 11/09/24 15:09 Dose 0.5 ml IM .STK-MED ONE - Progress Progress: improved Counseled pt/family regarding: diagnosis, need for follow-up Medical Desision Making - Diagnostic Testing Diagnostic test were ordered, analyzed, and reviewed by me: No - Risk of complications Minimal Risk: Minimal risk of morbidity - Departure Departure Disposition: Home Clinical Impression: Superficial contusion of skin Injury of thumb, right Qualifiers: Encounter type: initial encounter Qualified Code(s): S69.91XA - Unspecified injury of right wrist, hand and finger(s), initial encounter Condition: Stable Critical Care Time: No Referrals: VALENTINA ASHER MD [Primary Care Provider] - Follow up/PCP as directed Instructions: Wound Care (DC) Additional Instructions: Discharge/Care Plan JASMEET ARMSTRONG was seen on 11/09/24 in the Emergency Room. The patient was counseled regarding Diagnosis,Lab results, Imaging studies, need for follow up and when to return to the Emergency Room. Prescriptions given: Discharge Note I have spoken with the patient and/or caregivers. I have explained the patient's condition, diagnosis and treatment plan based on the information available to me at this time. I have answered the patient's and/or caregiver's questions and addressed any concerns. The patient and/or caregivers have as good understanding of the patient's diagnosis, condition and treatment plan as can be expected at this point. The vital signs have been stable. The patient's condition is stable and appropriate for discharge from the emergency department. The patient will pursue further outpatient evaluation with the primary care physician or other designated or consulting physician as outlined in the discharge instructions. The patient and/or caregivers are agreeable to this plan of care and follow-up instructions have been explained in detail. The patient and/or caregivers have received these instruction. The patient/and or caregivers are aware that any significant change in condition or worsening of symptoms should prompt an immediate return to this or the closest emergency department or call 911. JASMEET ARMSTRONG was seen on 11/09/24 n the Emergency Room. At that time you were treated for an emergent condition, during your visit Laboratory, Radiology and/or other procedures may have been ordered. It is very important that you follow-up with your Primary Care Physician VALENTINA ASHER within the next 24-48 hours to review your Emergency Room visit and the final results of testing that was ordered. Some test results such as Urine Cultures, Blood Cultures, and other cultures if ordered will not be finalized for 24-48 hours. If you do not have a Primary Care Provider please call the medical records department at [phone] ext [phone] to obtain a copy of your results or you may sign into our patient portal to obtain these results by visiting us @ [email or web address] and completing the following steps: 1. Click on the Patient Portal link 2. Click the Patient Self Enrollment Link to complete the enrollment form and entering your 3. Once the enrollment form is completed you will receive an email with a temporary ID and password at the email address you provided. 4. Next choose a user name and password. Your user name must be at least 4 characters long and your password must be at least 4 characters long. 5. Choose a security question from the list and provide your answer to the question. If you already have signed into the Health Portal you may access your Health Care Information 27/03 by the following steps: 1. Login to our website @ [email or web address] 2. Enter your original user name and password. FAQS The [facility] Health Portal is an online tool that contains your Lab Results, Radiology Reports, Visit History, Discharge Instructions and Health Summary Lab and Radiology Results will not be available for 72 hours on the portal. The Portal is a secure site, passwords are encryted and URLs are re-written so they cannot be copied and pasted. You and authorized family members are the only ones who can access your Portal. Also there is a timeout feature that protects your information if you leave the Portal page open. If you have technical difficulty please use the Contact Us link on the page this will allow you to submit any questions you have regarding the Portal or you may contact the Medical Record Department at [phone] ext [phone].
--- NOTE | 2024-11-09 20:42 | XRAY ---
Indication: Laceration. Foreign body. Comparison: None 3 view right hand demonstrates laceration base 1st phalanx with overlying bandage material. No radiopaque foreign body. No bony, articular, or soft tissue abnormalities.
== END 2024-11-09 15:38 | disposition home or self-care (01) ==
LOC: ED 14:59
DX: S61.011A Laceration without foreign body of right thumb without damage to nail, initial encounter (principal); W25.XXXA Contact with sharp glass, initial encounter; Y93.G1 Activity, food preparation and clean up; E11.9 Type 2 diabetes mellitus without complications; Z72.0 Tobacco use; Z23 Encounter for immunization
CPT/HCPCS: 73130; 90471; 90715; 99283

== ENCOUNTER 2024-11-15 15:11 | Emergency (ER) | payer OTHER ==
[2024-11-15 15:39] VITALS: PULSE 83; TEMP 98
--- NOTE | 2024-11-15 16:35 | ERPHSYRPT ---
- History of Present Illness Time Seen by Provider: 11/15/24 16:24 Source: patient Exam Limitations: no limitations Patient Subjective Stated Complaint: Pt fell on concrete at approx 0900 and landed on her right buttock/hip and has pain going down her leg and right foot/ankle, pt feels like needles are going down her leg, right lateral ankle swollen Triage Nursing Assessment: Pt was brought to the ER by her son, vitals wnl, rates pain as an 8/10, pulses normal, skin n/w/d, right lateral ankle swelling, right hip/buttock pain, pain radiates down her leg, denies LOC, denies hitting head Physician History: Pt [place] Am today with pain in her lower back & right lower extremity. Pt denies chest pain, shortness of air, abdominal pain, headache, neck pain. Allergies/Adverse Reactions: No Known Drug Allergies Allergy (Verified 11/15/24 15:39) Hx Tetanus, Diphtheria Vaccination/Date Given: No Hx Influenza Vaccination/Date Given: No Hx Pneumococcal Vaccination/Date Given: No Travel Risk - International Travel Have you traveled outside of the country in past 3 weeks: No - Emerging Infectious Disease Are you exhibiting symptoms associated with any current EIDs: No Symptoms: Cough: New Onset, Fever - Review of Systems Respiratory: No Dyspnea Cardiac: No Chest Pain Abdominal/Gastrointestinal: No Abdominal Pain Musculoskeletal: Back Pain, Other (pain from right lower back to right foot today post fall) - Past Medical History Pertinent Past Medical History: Yes Neurological History: Migraines Endocrine Medical History: Diabetes Type II, Hypoglycemia Psycho-Social History: Anxiety, Depression Female Reproductive Disorders: Abnormal Uterine Bleeding, Endometriosis, Other Other Medical History: CERVICAL PRECANCER, OVARIAN CYSTS - Past Surgical History Past Surgical History: Yes Gastrointestinal: Cholecystectomy Female Surgical History: Hysterectomy, Section, Tubal Ligation Other Surgical History: D/C Significant Family History: no pertinent family hx - Female History Hx Last Menstrual Period: hysterectomy Hx Now: No (hysterectomy) - Social History Smoking Status: Current every day smoker How long have you smoked: 14 Exposure to second hand smoke: Yes Drug Use: none - Social Determinants of Health Will the patient participate in the screening: Yes Do you worry about a steady place to live?: No Do you have any problems with any of the following?: No known problems In the past 12 months,have you had to go without utilities?: No Transportation Issues: No Has anyone in your support network made you feel unsafe?: No Have you or anyone in your house had to go w/o enough food: No - Nursing Vital Signs Nursing Vital Signs: Initial Vital Signs Temperature 98.0 F 11/15/24 15:29 Pulse Rate 83 11/15/24 15:29 Blood Pressure 105/65 11/15/24 15:29 O2 Sat by Pulse Oximetry 97 11/15/24 15:29 Pain Scale Pain Intensity 9 - [place] Coma Score Best Eye Response ([place]): (4) open spontaneously Best Verbal Response ([place]): (5) oriented Best Motor Response ([place]): (6) obeys commands [place] Total: 15 - Physical Exam General Appearance: alert Head Injury: no evidence of injury Eye Exam: PERRL/EOMI ENT Exam: airway nml, No clear fluid (ears), No clear fluid (nose) Neck Exam: trachea midline, No tenderness Respiratory/Chest Exam: normal breath sounds Cardiovascular Exam: normal heart sounds Gastrointestinal Exam: normal bowel sounds Back Exam: vertebral tenderness (mild lower lumbar tenderness without bruising) Extremity Exam: tenderness (Mild tenderness over right hip, thigh, lower leg, ankle & foot with decreased rom of the right ankle & mild edema over the lateral aspect of the right ankle) Neurologic Exam: alert, cooperative, normal mood/affect Skin Exam: warm, dry SpO2 Interpretation: normal SpO2: 97 O2 Delivery: Room Air - Course Nursing assessment & vital signs reviewed: Yes - Radiology Exams Right Foot X-ray Interpretation: Interpreted by me, No Fracture Right Ankle X-ray Interpretation: Interpreted by me, No Fracture Right Lower Leg X-ray Interpretation: Interpreted by me, No Fracture Right Femur X-ray Interpretation: Interpreted by me, No Fracture Pelvis X-ray Interpretation: Interpreted by me, No Fracture - CT Exams Lumbar Spine CT Interpretation: Discussed w/radiologist (Continued normal CT lumbart spine. See rest of report.) Ordered Tests: Active Orders 24 hr Category Date Time Status ANKLE (3 VIEWS) Stat Exams 11/15/24 16:32 Taken FEMUR Stat Exams 11/15/24 16:32 Taken FOOT (MINIMUM 3 VIEWS) Stat Exams 11/15/24 16:32 Taken LOWER LEG Stat Exams 11/15/24 16:32 Taken LUMBAR SPINE W/O [CT] Stat Exams 11/15/24 16:31 Completed PELVIS (1 OR 2 VIEWS) Stat Exams 11/15/24 16:32 Taken Medication Summary Discontinued Medications Generic Name Dose Route Start Last Admin Trade Name Yayo PRN Reason Stop Dose Admin Hydrocodone Bitart/Acetaminophen 2 tab 11/15/24 16:33 11/15/24 17:47 Hydrocodone/Apap 5/325 1 Tab Tablet PO 11/15/24 16:34 2 tab STAT ONE Administration Hydrocodone Bitart/Acetaminophen Confirm 11/15/24 17:45 Hydrocodone/Apap 5/325 1 Tab Tablet Administered 11/15/24 17:46 Dose 2 tab .ROUTE .STK-MED ONE - Progress Progress: unchanged Counseled pt/family regarding: diagnosis, need for follow-up, rad results Medical Desision Making - Diagnostic Testing Diagnostic test were ordered, analyzed, and reviewed by me: Yes Radiological Interpretation: Interpreted by me, Discussed w/ radiologist - Departure Departure Disposition: Home Clinical Impression: Sprain of right ankle, right hip, thigh, leg & foot pain, Lower back pain Condition: Stable Critical Care Time: No Referrals: VALENTINA ASHER MD [Primary Care Provider] - Follow up/PCP as directed Instructions: Preventing falls in adults, Ankle sprain Additional Instructions: Follow up with private doctor tomorrow. Use crutches for the next 2 weeks. No weight bearing on right foot for the next 4 days. Elevate right ankle above heart level for the next 24 hours. Apply sepideh wrap to right ankle for the next 4 days. Forms: Work/School Release Form Prescriptions: Ibuprofen 800 mg PO Q8HPRN PRN #20 tablet PRN Reason: Pain
--- NOTE | 2024-11-15 17:06 | XRAY ---
Indication: Pain following fall. Multiple contiguous axial images obtained through lumbar spine. Sagittal and coronal reformatted images obtained. Comparison: CT abdomen/pelvis June 06, 2023 Axial images negative for acute fracture, suspicious bony lesions, or spinal canal stenosis. Facets are symmetric. Sagittal and coronal reformatted images again demonstrates normal alignment with vertebral body heights/disc spaces maintained. No acute compression fracture or subluxation. Visualized noncontrasted soft tissues again demonstrates fatty liver and cholecystotomy clips. Impression: Continued normal CT lumbar spine. Again incidental fatty liver.
[2024-11-15] MEDS ORDERED: NORCO 5/325 MG ONE (17:45)
[2024-11-15] MEDS: NORCO 5/325 MG PO ONE (17:47)
[2024-11-15 19:20] VITALS: BP 88/65
[2024-11-15 19:23] VITALS: O2SAT 97
--- NOTE | 2024-11-16 08:34 | XRAY ---
Indication: Pain following fall. Comparison: None 2 view right femur obtained. No bony, articular, or soft tissue abnormalities.
--- NOTE | 2024-11-16 08:34 | XRAY ---
Indication: Pain following fall. Comparison: None AP pelvis obtained. No bony, articular, or soft tissue abnormalities.
--- NOTE | 2024-11-16 08:36 | XRAY ---
Indication: Pain following fall. Comparison: July 05, 2006 3 nonweightbearing views right foot again demonstrates incidental tiny navicular accessory ossicle. No acute bony, articular, or soft tissue abnormalities.
--- NOTE | 2024-11-16 08:36 | XRAY ---
Indication: Pain following fall. Comparison: None 2 view right lower leg obtained. No bony, articular, or soft tissue abnormalities.
--- NOTE | 2024-11-16 08:36 | XRAY ---
Indication: Pain following fall. Comparison: None 3 view right ankle demonstrates mild anterolateral soft tissue swelling. No other bony, articular, or soft tissue abnormalities.
== END 2024-11-15 19:42 | disposition home or self-care (01) ==
LOC: ED 15:11
DX: S93.401A Sprain of unspecified ligament of right ankle, initial encounter (principal); W18.30XA Fall on same level, unspecified, initial encounter; M25.551 Pain in right hip; M79.651 Pain in right thigh; M79.661 Pain in right lower leg; M79.671 Pain in right foot; M54.50 Low back pain, unspecified; E11.9 Type 2 diabetes mellitus without complications; Z72.0 Tobacco use
CPT/HCPCS: 72131; 72170; 73552; 73590; 73610; 73630; 99283; 99284; A9270-GY

== ENCOUNTER 2025-01-13 18:07 | Emergency (ER) | payer OTHER ==
[2025-01-13 18:29] VITALS: RESP 18
--- NOTE | 2025-01-13 19:53 | ERPHSYRPT ---
- History of Present Illness Source: patient Exam Limitations: no limitations Patient Subjective Stated Complaint: patient states "I have had right foot pain that radiates up leg, fell about a month or two months ago. I have noticed an increase in swelling to right lower leg" Triage Nursing Assessment: patient walked into ED with complaints of bilateral lower extremity pain, patient alert and oriented, no signs of distress noted Physician History: Patient Danita. It has been a persistent problem. She developed it from a epidural that had an adverse event. She has preclassic's sciatica symptoms except they are bilateral. She has been having some pain and edema in her feet.This is relatively new. But she has the persistent sciatica symptoms that basically radiate down her leg. She has some paresthesias in the feet. She gets edematous feet whenever she has been on for too long. She does not have any bowel or bladder dysfunction no saddle paresthesias no acute cord symptoms. Position changes seem to affect the pain. She is diabetic and has poorly controlled sugars so steroids are not a good option for her. Timing/Duration: week(s) Allergies/Adverse Reactions: amoxicillin Allergy (Verified 01/13/25 18:30) Penicillins Allergy (Verified 01/13/25 18:30) Home Medications: Gabapentin 300 mg PO BID 01/13/25 [History] Hx Tetanus, Diphtheria Vaccination/Date Given: Yes Hx Influenza Vaccination/Date Given: No Hx Pneumococcal Vaccination/Date Given: No Travel Risk - International Travel Have you traveled outside of the country in past 3 weeks: No - Emerging Infectious Disease Are you exhibiting symptoms associated with any current EIDs: No Symptoms: Cough: New Onset, Fever - Review of Systems Constitutional: No Symptoms Eyes: No Symptoms Ears, Nose, & Throat: No Symptoms Musculoskeletal: No Symptoms Skin: No Symptoms Psychological: No Symptoms - Past Medical History Pertinent Past Medical History: Yes Neurological History: Migraines ENT History: No Pertinent History Cardiac History: High Cholesterol Respiratory History: Asthma, Bronchitis Endocrine Medical History: Diabetes Type II Musculoskeletal History: No Pertinent History GI Medical History: GERD, Irritable Bowel History: No Pertinent History Psycho-Social History: Anxiety, Depression Female Reproductive Disorders: Other Other Medical History: hx: cervical cancer, had hysterectomy 2016 - Past Surgical History Past Surgical History: Yes Neuro Surgical History: No Pertinent History Gastrointestinal: Cholecystectomy Musculoskeletal: No Pertinent History Other Surgical History: c section, Significant Family History: no pertinent family hx - Female History Hx Last Menstrual Period: hysterectomy Hx Now: No - Social History Smoking Status: Current every day smoker Drug Use: none - Social Determinants of Health Will the patient participate in the screening: Yes Do you worry about a steady place to live?: Yes Do you have any problems with any of the following?: No known problems In the past 12 months,have you had to go without utilities?: No Transportation Issues: Yes Has anyone in your support network made you feel unsafe?: No Have you or anyone in your house had to go w/o enough food: No - Nursing Vital Signs Nursing Vital Signs: Initial Vital Signs Pulse Rate 87 01/13/25 18:14 Respiratory Rate 18 01/13/25 18:14 Blood Pressure 138/87 01/13/25 18:14 O2 Sat by Pulse Oximetry 98 01/13/25 18:14 Pain Scale Pain Intensity 9 - Physical Exam General Appearance: no apparent distress Eye Exam: PERRL/EOMI Back Exam: normal inspection, decreased range of motion (Due to pain) Extremity Exam: other (Bilateral lower extremity edema in the feet with some erythema.) Neurologic Exam: alert, oriented x 3, cooperative Skin Exam: normal color SpO2: 98 - Course Nursing assessment & vital signs reviewed: Yes Ordered Tests: Active Orders 24 hr Category Date Time Status POCT GLUCOSE Stat Lab 01/13/25 18:21 Completed Lab/Rad Data: Laboratory Results 01/13/25 Range/Units 18:21 POC Glucometer 154 H (74 to 106) mg/dL - Progress Progress: unchanged Progress Note: Patient was stable throughout stay. I think she has sciatica symptoms. I think that pain management would be a good alternative for her. She is going to talk to her family doctor about that. Also recommended that she gets her diabetes treated. She was tried on metformin but that did not work out. They are getting ready to start some new therapy for her. She is not a good candidate for steroids. This can give her some [place] for the next few days and have her get in with pain management. 01/13/25 19:42 Medical Desision Making - Risk of complications Minimal Risk: Minimal risk of morbidity - Departure Departure Disposition: Home Clinical Impression: Sciatica Condition: Stable Critical Care Time: No Referrals: VALENTINA ASHER MD [Primary Care Provider, [facility]] - Follow up/PCP as directed Instructions: Sciatica - ED discharge instructions
[2025-01-13] MEDS ORDERED: NORCO 5/325 MG ONE (19:58)
[2025-01-13] MEDS: NORCO 5/325 MG PO ONE (19:59)
[2025-01-13 20:41] VITALS: BP 124/78; PULSE 78; O2SAT 99
== END 2025-01-13 20:48 | disposition home or self-care (01) ==
LOC: ED 18:07
DX: M54.32 Sciatica, left side (principal); M54.31 Sciatica, right side; M79.671 Pain in right foot; M79.672 Pain in left foot; R60.0 Localized edema; E11.9 Type 2 diabetes mellitus without complications; E78.5 Hyperlipidemia, unspecified; Z79.891 Long term (current) use of opiate analgesic; Z79.899 Other long term (current) drug therapy; Z72.0 Tobacco use; Z59.819 Housing instability, housed unspecified; Z59.82 Transportation insecurity
CPT/HCPCS: 82947; 99283; A9270-GY

== ENCOUNTER 2025-05-27 16:03 | Emergency (ER) | payer OTHER ==
--- NOTE | 2025-05-27 16:24 | ERPHSYRPT ---
- History of Present Illness Time Seen by Provider: 05/27/25 16:24 Source: patient, family Exam Limitations: no limitations Physician History: This is a 34-year-old morbidly obese white female patient who arrives for private vehicle and is a patient of Dr. Asher who has known umbilical/ventral hernia. She was seen here in the emergency department on 05/10/[address] scan without contrast shows an umbilical hernial sac with omental fat in it. There was no incarcerated umbilical hernia. She has not yet seen a general surgeon. Per her report, the office is attempting to make an appointment to see a general surgeon. Patient has a history of migraine headaches, gastroesophageal reflux disease, irritable bowel syndrome, hyperlipidemia, asthma and anxiety. Patient states that she has had constipation and episode of pain that was significant yesterday. Timing/Duration: yesterday Activites at Onset: none Quality: aching Onset Location: periumbilical Severity of Pain-Max: mild (To moderate) Severity of Pain-Current: mild Prior abdominal problems: none Sexual intercourse history: non-contributory Modifying Factors: Improves With: nothing Associated Symptoms: abdominal pain (Umbilical region) Allergies/Adverse Reactions: amoxicillin Allergy (Verified 05/10/25 20:12) Penicillins Allergy (Verified 05/10/25 20:12) Home Medications: Melatonin 10 mg PO HS 05/10/25 [History] buPROPion HCL [Bupropion Xl] 150 mg PO DAILY 05/27/25 [History] Hx Tetanus, Diphtheria Vaccination/Date Given: Yes Hx Influenza Vaccination/Date Given: No Hx Pneumococcal Vaccination/Date Given: No Travel Risk - International Travel Have you traveled outside of the country in past 3 weeks: No - Emerging Infectious Disease Are you exhibiting symptoms associated with any current EIDs: Yes Symptoms: Abdominal Pain - Review of Systems Constitutional: No Symptoms Eyes: No Symptoms Ears, Nose, & Throat: No Symptoms Respiratory: No Symptoms Cardiac: No Symptoms Abdominal/Gastrointestinal: Abdominal Pain (Umbilical region) Genitourinary Symptoms: No Symptoms Musculoskeletal: No Symptoms Skin: No Symptoms Neurological: No Symptoms Psychological: No Symptoms Endocrine: No Symptoms Hematologic/Lymphatic: No Symptoms Immunological/Allergic: No Symptoms All Other Systems: Reviewed and Negative - Past Medical History Pertinent Past Medical History: Yes Neurological History: Migraines ENT History: No Pertinent History Cardiac History: High Cholesterol Respiratory History: Asthma, Bronchitis Endocrine Medical History: Diabetes Type II Musculoskeletal History: No Pertinent History GI Medical History: GERD, Irritable Bowel History: No Pertinent History Psycho-Social History: Anxiety, Depression Female Reproductive Disorders: Other Other Medical History: hx: cervical cancer, had hysterectomy 2016 - Past Surgical History Past Surgical History: Yes Neuro Surgical History: No Pertinent History Gastrointestinal: Cholecystectomy Musculoskeletal: No Pertinent History Female Surgical History: Hysterectomy, Section, Tubal Ligation Other Surgical History: c section, Significant Family History: no pertinent family hx - Female History Hx Last Menstrual Period: hysterectomy - Social History Smoking Status: Current every day smoker Exposure to second hand smoke: Yes Drug Use: none - Social Determinants of Health Will the patient participate in the screening: Yes Do you worry about a steady place to live?: Yes In the past 12 months,have you had to go without utilities?: No Transportation Issues: No Has anyone in your support network made you feel unsafe?: No Have you or anyone in your house had to go w/o enough food: No - Nursing Vital Signs Nursing Vital Signs: Initial Vital Signs Temperature 96.2 F 05/27/25 16:14 Pulse Rate 71 05/27/25 16:14 Respiratory Rate 20 05/27/25 16:14 Blood Pressure 148/84 05/27/25 16:14 O2 Sat by Pulse Oximetry 96 05/27/25 16:14 Pain Scale Pain Intensity 8 - Physical Exam General Appearance: no apparent distress, alert, anxiety Eye Exam: PERRL/EOMI, eyes nml inspection Ears, Nose, Throat Exam: normal ENT inspection, moist mucous membranes Neck Exam: normal inspection, non-tender, supple, full range of motion Respiratory Exam: normal breath sounds, lungs clear, No chest tenderness, No respiratory distress Cardiovascular Exam: regular rate/rhythm, normal heart sounds, normal peripheral pulses Gastrointestinal/Abdomen Exam: soft, normal bowel sounds, tenderness (In the umbilical region to palpation.), hernia (Umbilical region reducible hernia.), other (No skin changes in the area of the umbilical hernia), No guarding Pelvic Exam: not done Rectal Exam: not done Back Exam: normal inspection, normal range of motion, No CVA tenderness, No vertebral tenderness Extremity Exam: normal inspection, normal range of motion, pelvis stable Neurologic Exam: alert, oriented x 3, cooperative, venetian blind tape cutter II-XII nml as tested, normal mood/affect, nml cerebellar function, nml station & gait, sensation nml Skin Exam: normal color, warm, dry Lymphatic Exam: No adenopathy SpO2 Interpretation: normal O2 Delivery: Room Air - Course Nursing assessment & vital signs reviewed: Yes Ordered Tests: Active Orders 24 hr Category Date Time Status AMA [Release AMA] OM.NOW Care 05/27/25 18:23 Active ABDOMEN AND PELVIS W/0 CONTRAS [CT] Stat Exams 05/27/25 18:21 Ordered - Progress Progress: unchanged Air Movement: good Progress Note: 05/27/25 18:25 My medical decision making and the assignment of moderate complexity of this patient's medical issue today is based on review of the patient's past medical history, review the patient's medication list, reviewed patient drug allergy list, history of present illness and physical findings on examination. The workup in this patient includes CT scan of the abdomen pelvis without contrast to determine if there actually is bowel incarcerated within the umbilical sac. Differential diagnosis includes but is not limited to abdominal pain, umbilical hernia, reducible umbilical hernia, incarcerated umbilical hernia 05/27/25 18:27 After I evaluated her and ordered a CT scan of the abdomen pelvis, the patient told the nurse that she was leaving. She did not wish to wait for her test or the results. She signed AGAINST MEDICAL ADVICE form Blood Culture(s) Obtained: No Antibiotics given: No Counseled pt/family regarding: diagnosis Medical Desision Making - Risk of complications Low Risk: Low risk of morbidity from additional dx testing or treatment - Departure Departure Disposition: AMA Clinical Impression: Umbilical hernia Condition: Stable Critical Care Time: No Referrals: VALENTINA ASHER MD [Primary Care Provider, [facility]] - Follow up/PCP as directed Additional Instructions: Patient left without discharge instructions. She left AMA
[2025-05-27 16:36] VITALS: TEMP 96.2
[2025-05-27 17:17] VITALS: RESP 16
[2025-05-27 18:23] VITALS: BP 128/58; PULSE 78; O2SAT 96
== END 2025-05-27 18:19 | disposition left against medical advice (07) ==
LOC: ED 16:03
DX: K42.9 Umbilical hernia without obstruction or gangrene (principal); R10.33 Periumbilical pain; E11.9 Type 2 diabetes mellitus without complications; Z79.899 Other long term (current) drug therapy; Z72.0 Tobacco use; Z59.819 Housing instability, housed unspecified

== ENCOUNTER 2025-07-07 12:19 | Emergency (ER) | payer OTHER ==
[2025-07-07 12:26] VITALS: RESP 20; TEMP 97
--- NOTE | 2025-07-07 12:51 | ERPHSYRPT ---
- History of Present Illness Patient Subjective Stated Complaint: patient states she was at work and was lifting patient and she felt pop and now having severe pain in abdomen Triage Nursing Assessment: ike was driven to ED tody by friend says she was working yesterday and she had pop in her abdomen nad now shes in lots of pain, she saw dr shoshana menjivar on 06/24 and hes doing hernia repair on 07/17. she came in because pain since yesterday is so bad and shes vomitting now from pain as well. patient is A& O x3, ambulates by self , gait is steady skin wamr dry and intact , bowel sounds present x4 . Physician History: Upper abdominal pain, patient has known history of umbilical hernia, yesterday she was lifting a patient and had a sudden onset of severe upper abdominal pain while attempting to lift the patient, since then the pain has persisted, she has a scheduled surgery to repair the umbilical hernia, she is having some vomiting, denies constipation Timing/Duration: yesterday Activities at Onset: activity Quality: aching Abdominal Pain Onset Location: epigastric, periumbilical Pain Radiation: no radiation Severity of Pain-Max: severe Severity of Pain-Current: severe Body Map: 1 - area of pain Allergies/Adverse Reactions: amoxicillin Allergy (Verified 07/07/25 12:31) Penicillins Allergy (Verified 07/07/25 12:31) Home Medications: Melatonin 10 mg PO HS 05/10/25 [History] Buspirone HCl [Bucapsol] 10 mg PO DAILY 06/25/25 [History] Gabapentin 300 mg PO TID 06/25/25 [History] Hx Tetanus, Diphtheria Vaccination/Date Given: Yes Hx Influenza Vaccination/Date Given: No Hx Pneumococcal Vaccination/Date Given: No Immunizations Up to Date: Yes Travel Risk - International Travel Have you traveled outside of the country in past 3 weeks: No - Emerging Infectious Disease Are you exhibiting symptoms associated with any current EIDs: No Symptoms: Abdominal Pain - Past Medical History Pertinent Past Medical History: Yes Neurological History: Migraines ENT History: No Pertinent History Cardiac History: No Pertinent History Respiratory History: No Pertinent History Endocrine Medical History: Diabetes Type II Musculoskeletal History: No Pertinent History GI Medical History: No Pertinent History History: No Pertinent History Psycho-Social History: Anxiety, Depression Female Reproductive Disorders: Other Other Medical History: hx: cervical cancer, had hysterectomy 2016 - Past Surgical History Past Surgical History: Yes Neuro Surgical History: No Pertinent History Cardiac: No Pertinent History Respiratory: No Pertinent History Gastrointestinal: Cholecystectomy Genitourinary: No Pertinent History Musculoskeletal: No Pertinent History Female Surgical History: Hysterectomy, Section, Tubal Ligation Other Surgical History: c section, Significant Family History: no pertinent family hx - Female History Hx Last Menstrual Period: hysterectomy Hx Now: No - Social History Smoking Status: Current every day smoker Exposure to second hand smoke: Yes Drug Use: none - Social Determinants of Health Will the patient participate in the screening: Yes Do you worry about a steady place to live?: Yes Do you have any problems with any of the following?: No known problems In the past 12 months,have you had to go without utilities?: No Transportation Issues: No Has anyone in your support network made you feel unsafe?: No Have you or anyone in your house had to go w/o enough food: No - Nursing Vital Signs Nursing Vital Signs: Initial Vital Signs Temperature 97 F 07/07/25 12:19 Pulse Rate 71 07/07/25 12:19 Respiratory Rate 20 07/07/25 12:19 O2 Sat by Pulse Oximetry 98 07/07/25 12:19 Pain Scale Pain Intensity 7 - Physical Exam General Appearance: no apparent distress, alert Eye Exam: PERRL/EOMI, eyes nml inspection Ears, Nose, Throat Exam: normal ENT inspection, pharynx normal, moist mucous membranes Neck Exam: normal inspection, non-tender, supple, full range of motion Respiratory Exam: normal breath sounds, lungs clear, No respiratory distress Cardiovascular Exam: regular rate/rhythm, normal heart sounds Gastrointestinal/Abdomen Exam: soft, tenderness, hernia (umbilical), No mass Back Exam: normal inspection, normal range of motion, No CVA tenderness, No vertebral tenderness Extremity Exam: normal inspection, normal range of motion, pelvis stable Neurologic Exam: alert, oriented x 3, cooperative, normal mood/affect, nml cerebellar function, sensation nml, No motor deficits Skin Exam: normal color, warm, dry SpO2 Interpretation: normal SpO2: 98 Ordered Tests: Active Orders 24 hr Category Date Time Status IV Insertion STAT Care 07/07/25 12:43 Active ABDOMEN AND PELVIS W/0 CONTRAS [CT] Stat Exams 07/07/25 12:44 Completed BMP Stat Lab 07/07/25 12:55 Completed CBC W DIFF Stat Lab 07/07/25 12:55 Completed LIPASE Stat Lab 07/07/25 12:55 Completed Manual Differential NC Stat Lab 07/07/25 12:55 Completed Medication Summary Discontinued Medications Generic Name Dose Route Start Last Admin Trade Name Yayo PRN Reason Stop Dose Admin Diphenhydramine HCl 25 mg 07/07/25 14:09 07/07/25 14:24 Diphenhydramine Hcl 50 Mg/Ml Vial IV 07/07/25 14:10 25 mg STAT ONE Administration Diphenhydramine HCl Confirm 07/07/25 14:22 Diphenhydramine Hcl 50 Mg/Ml Vial Administered 07/07/25 14:23 Dose 50 mg .ROUTE .STK-MED ONE Morphine Sulfate 4 mg 07/07/25 12:43 07/07/25 13:02 Morphine Sulfate 4 Mg/Ml Injection IV 07/07/25 12:44 4 mg STAT ONE Administration Morphine Sulfate Confirm 07/07/25 12:59 Morphine Sulfate 4 Mg/Ml Injection Administered 07/07/25 13:00 Dose 4 mg .ROUTE .STK-MED ONE Ondansetron HCl 4 mg 07/07/25 12:43 07/07/25 13:02 Ondansetron Hcl 4 Mg/2 Ml Vial IV 07/07/25 12:44 4 mg STAT ONE Administration Ondansetron HCl Confirm 07/07/25 12:58 Ondansetron Hcl 4 Mg/2 Ml Vial Administered 07/07/25 12:59 Dose 4 mg .ROUTE .STK-MED ONE Lab/Rad Data: Laboratory Result Diagrams 07/07/25 12:55 07/07/25 12:55 Laboratory Results 07/07/25 07/07/25 Range/Units 12:55 12:55 WBC 9.8 (3.98-10.04) x10^3/uL RBC 4.66 (3.93-5.22) x10^6/uL Hgb 13.8 (11.2-15.7) g/dL Hct 41.0 (34.1-44.9) % MCV 88.0 (79.4-94.8) fL MCH 29.6 (25.6-32.2) pg MCHC 33.7 (32.2-35.5) g/dL RDW 12.7 (11.7-14.4) % Plt Count 289 (182-369) x10^3/uL MPV 9.3 L (9.4-12.3) fL Sodium 137 (135-145) mmol/L Potassium 4.3 (3.5-5.1) mmol/L Chloride 108 H (98-107) mmol/L Carbon Dioxide 23 (22-30) mmol/L Anion Gap 10.1 (5-15) MEQ/L BUN 20 H (7-17) mg/dL Creatinine 0.60 (0.52-1.04) mg/dL Estimated GFR 119.2 ML/MIN Glucose 97 (74-106) mg/dL Calcium 8.9 (8.4-10.2) mg/dL Lipase 84 (23-300) U/L - Progress Progress Note: 07/07/25 14:[address] results, recommend outpatient follow-up as scheduled - Departure Departure Disposition: Home Clinical Impression: Abdominal wall strain Qualifiers: Encounter type: initial encounter Qualified Code(s): S39.011A - Strain of muscle, fascia and tendon of abdomen, initial encounter Condition: Stable Critical Care Time: No Referrals: VALENTINA ASHER MD [Primary Care Provider, [facility]] - Follow up/PCP as directed Instructions: Abdominal muscle strain - ED discharge instructions Additional Instructions: Ice area of pain 10 to 15 minutes 3-4 times a day, Follow-up to general surgery as scheduled next week, Continue home medications, ibuprofen 2-3 tabs 3 times a day Forms: Work/School Release Form
[2025-07-07 12:58] LABS: Hematocrit 41.0 % (34.1-44.9); Hemoglobin 13.8 g/dL (11.2-15.7); Mean Corpuscular Hemoglobin 29.6 pg (25.6-32.2); Mean Corpuscular Hgb Concent. 33.7 g/dL (32.2-35.5); Platelet Count 289 x10^3/uL (182-369); Red Blood Count 4.66 x10^6/uL (3.93-5.22); White Blood Count 9.8 x10^3/uL (3.98-10.04)
[2025-07-07] MEDS ORDERED: Zofran 4 MG/2 ML VIAL ONE (12:58)
[2025-07-07] MEDS ORDERED: MORPHINE SULFATE 4 MG INJ ONE (12:59)
[2025-07-07] MEDS: MORPHINE SULFATE 4 MG INJ IV ONE (13:02)
[2025-07-07] MEDS: Zofran 4 MG/2 ML VIAL IV ONE (13:02)
[2025-07-07 13:13] LABS: Calcium 8.9 mg/dL (8.4-10.2); Carbon Dioxide 23.0 mmol/L (22-30); Creatinine 1 0.6 mg/dL (0.52-1.04); EST GLOMERULAR FILTRATION RATE 119.2 ML/MIN; Glucose 97.0 mg/dL (74-106); Potassium 4.3 mmol/L (3.5-5.1)
[2025-07-07 13:33] VITALS: BP 115/58; PULSE 67
--- NOTE | 2025-07-07 14:17 | XRAY ---
Indication: Pain. Multiple contiguous axial images obtained through the abdomen pelvis without contrast. Comparison: May 10, 2025 Lung bases remain clear again with incidental small left lower lobe calcified granuloma. Heart not enlarged. Noncontrasted stomach and bowel loops nonobstructed. Again 22.2 cm fatty hepatomegaly, 12.9 cm splenomegaly, and cholecystectomy. No free fluid/air. Remaining liver, pancreas, spleen, adrenal glands, kidneys, ureters, bladder, and aorta are unremarkable for noncontrast exam. Osseous structures intact. Stable small fatty supraumbilical ventral hernia. Impression: Stable left lower lobe calcified granuloma, fatty hepatomegaly, splenomegaly, and fatty ventral hernia. No new/acute findings on this noncontrast exam.
[2025-07-07] MEDS ORDERED: BENADRYL 50 MG/ML ONE (14:22)
[2025-07-07] MEDS: BENADRYL 50 MG/ML IV ONE (14:24)
[2025-07-07 14:41] VITALS: O2SAT 98
[2025-07-07 14:52] LABS: BAND 1 % (0.0-2.0); Total Cells Counted 100
== END 2025-07-07 14:52 | disposition home or self-care (01) ==
LOC: ED 12:19
DX: S39.011A Strain of muscle, fascia and tendon of abdomen, initial encounter (principal); X50.0XXA Overexertion from strenuous movement or load, initial encounter; Y93.F2 Activity, caregiving, lifting; Y99.0 Civilian activity done for income or pay; R10.10 Upper abdominal pain, unspecified; R11.2 Nausea with vomiting, unspecified; E11.9 Type 2 diabetes mellitus without complications; Z79.899 Other long term (current) drug therapy; Z72.0 Tobacco use; Z59.819 Housing instability, housed unspecified

== ENCOUNTER 2025-07-17 10:59 | Day surgery (SDC) | payer OTHER ==
[~2025-07-17 10:59] MED LIST: Sensorcaine 0.25% 10 ML ONE
[2025-07-17] MEDS ORDERED: TYLENOL EXTRA STRENGTH 500 MG ONE (11:09)
[2025-07-17] MEDS ORDERED: celeBREX 100 MG ONE (11:09)
[2025-07-17] MEDS ORDERED: Decadron 4 MG ONE (11:09)
[2025-07-17] MEDS ORDERED: NEURONTIN ONE (11:09)
[2025-07-17] MEDS: NEURONTIN PO ONE (11:19)
[2025-07-17] MEDS: celeBREX 100 MG PO ONE (11:19)
[2025-07-17] MEDS: Decadron 4 MG PO ONE (11:20)
[2025-07-17] MEDS: TYLENOL EXTRA STRENGTH 500 MG PO ONE (11:20)
[2025-07-17 11:38] LABS: Calcium 9.5 mg/dL (8.4-10.2); Carbon Dioxide 24.0 mmol/L (22-30); Creatinine 1 0.69 mg/dL (0.52-1.04); EST GLOMERULAR FILTRATION RATE 115.3 ML/MIN; Glucose 96.0 mg/dL (74-106); Potassium 4.6 mmol/L (3.5-5.1)
[2025-07-17] MEDS ORDERED: CEFAZOLIN SODIUM ONE (11:47)
[2025-07-17] MEDS: Versed 2 MG/2 ML Injection IV ONE (12:25)
[2025-07-17] MEDS ORDERED: ROCURONIUM BROMIDE IV ONE ×2 (12:33→13:51)
[2025-07-17] MEDS ORDERED: propofoL IV ONE (12:33)
[2025-07-17] MEDS ORDERED: Zofran 4 MG/2 ML VIAL ONE ×2 (12:33→16:07)
[2025-07-17] MEDS ORDERED: DEXMEDETOMIDINE 80 MCG/20ML-NS IV ONE (13:42)
[2025-07-17] MEDS ORDERED: BRIDION 200MG/2ML IV ONE (13:48)
[2025-07-17] MEDS ORDERED: Lactated Ringers 1,000 ML IV ONE (13:59)
[2025-07-17] MEDS ORDERED: SUBLIMAZE 100 MCG/2 ML ONE ×2 (14:03→16:12)
[2025-07-17] MEDS ORDERED: Naropin 0.5% 30 ML VIAL ONE (14:11)
[2025-07-17] MEDS ORDERED: TORAdol 30 mg Injection ONE (14:48)
[2025-07-17 16:54] VITALS: BP 103/64
[2025-07-17 17:08] VITALS: RESP 18; O2SAT 93
[2025-07-17] MEDS ORDERED: NORCO 5/325 MG PO PRN (17:08)
[2025-07-17] MEDS: NORCO 10-325 MG PO PRN (17:27)
[2025-07-17 17:58] VITALS: PULSE 73; TEMP 97.5
[2025-07-17] MEDS ORDERED: BUSPAR 5 MG PO SCH (18:00)
[2025-07-17] MEDS ORDERED: NEURONTIN PO SCH (22:00)
[2025-07-17] MEDS ORDERED: MELATONIN PO SCH (22:00)
--- NOTE | 2025-07-21 07:45 | OP ---
DATE/TIME OF SURGERY: 07/17/2025 [id number] PREOPERATIVE DIAGNOSIS: Ventral hernia. POSTOPERATIVE DIAGNOSIS: Ventral hernia. PROCEDURE PERFORMED: Laparoscopic repair of ventral hernia defect, size measuring 3 cm, with mesh, intraperitoneal onlay mesh. ANESTHESIA: General. ESTIMATED BLOOD LOSS: Minimal. CONDITION: Stable. COMPLICATIONS: None. SPECIMENS: Sac. INDICATIONS: A 34-year-old female, really symptomatic ventral hernia superior to the umbilicus, that feels like it is probably about a 3 cm defect on exam, but she has morbid obesity. Discussed with patient essentially a certain recurrence eventually with her hernia given her morbid obesity, that ultimate recommendation would be weight loss prior to her repair, but this is very symptomatic. She has been to emergency with this. Discussed with her risks of infection, bleeding, injury to nearby structure, hernia recurrence, acute pain, chronic pain, mesh complication, and she wants to proceed with repair. FINDINGS: A 3 cm defect, large sac, IPOM. DESCRIPTION OF PROCEDURE AND FINDINGS: The patient was brought to the operating room, general anesthesia induced, routinely positioned, prepped and draped, time-out performed, received preoperative antibiotic. The 5 mm Optiview trocar was placed in the left upper quadrant. Pneumoperitoneum established. A 5 mm trocar was placed in the left mid abdomen and left lower abdomen. Abdomen surveyed. The preperitoneal space entered superiorly, inferiorly. Falciform freed up off it. There was a good adequate space for mesh overlap. There was really not a very good working space in the abdomen at all, but there was adequate space for mesh overlap. Then, an incision was made over the hernia sac, which was mobilized sharply, and then the sac was excised. There was a healthy circumferential sac fascia. The sac was sent for specimen. The [address] mesh was then placed, and the fascia was closed with running 0 PDS suture, and then the mesh was brought up against the abdominal wall and tacked in place using the SorbaFix tacker. That was flat, hemostatic, satisfactory. The omentum was nicely between the bowel and the mesh, and the abdomen desufflated. The skin was closed with 4-0 Vicryl suture as well as 3-0 nylon sutures. Sterile dressing was applied. All counts were correct. The patient tolerated the procedure well. Plan is for extubation.
== END 2025-07-17 18:00 | disposition home or self-care (01) ==
LOC: SDC 10:59 → MED SURG 16:42 → SDC 18:00
PROVIDERS: ATTEND Surgery
DX: K43.9 Ventral hernia without obstruction or gangrene (principal); E11.9 Type 2 diabetes mellitus without complications
CPT/HCPCS: 36415; 49593; 80048; 82947; 93005; A4649; C1781